=== PATIENT | female | born 1950 | race African-American/Black ===

== ENCOUNTER 2016-09-05 09:42 | Observation (INO) | payer MEDICARE, MEDICAID ==
[~2016-09-05] VITALS: Ht 165.1 cm; Wt 78.7 kg
[2016-09-05] MEDS ORDERED: FUROSEMIDE 40MG/4ML VIAL IV ONE (10:15)
[2016-09-05] MEDS ORDERED: NITROGLYCERIN OINT 1GM/INCH UDPKT TD ONE (10:15)
[2016-09-05] MEDS ORDERED: ASPIRIN 81MG TABLET PO ONE (10:15)
[2016-09-05 10:36] LABS: BASOPHILS % 1.2 % (0.0-2.0); EOSINOPHILS % 0.8 % (0.0-5.0); HEMATOCRIT. 33.1 % (36.0-48.0); HEMOGLOBIN. 10.7 g/dL (12.0-16.0); LYMPHOCYTES % 29.5 % (20.0-50.0); MEAN CORPUSCULAR HEMOGLOBIN 28.2 pg (28.0-32.0); MEAN CORPUSCULAR HGB CONC 32.4 g/dL (31.0-37.0); MEAN CORPUSCULAR VOLUME 87.2 fL (81.0-99.0); MEAN PLATELET VOLUME 7.8 fl (7.4-10.4); MONOCYTES % 4.3 % (2.0-8.0); NEUTROPHILS % 64.2 % (40.0-76.0); PLATELET 207 x1000/uL (130-400); RED BLOOD CELL COUNT 3.79 mill/uL (4.2-5.4); RED CELL DISTRIBUTION WIDTH 18.4 % (11.6-14.6); WHITE BLOOD COUNT 5.6 x1000/uL (4.5-11.0)
[2016-09-05 10:45] LABS: D-DIMER 0.26 mg/L FEU (<0.50); INR 1.3; PROTHROMBIN TIME 13.4 sec
[2016-09-05 10:46] LABS: ALBUMIN 3.3 g/dL (3.4-5.0); ANION GAP 15; CALCIUM 8.5 mg/dL (8.5-10.1); CARBON DIOXIDE 27 mEq/L (21-32); CHLORIDE 108 mEq/L (98-107); INDEX HEMOLYSI 1 (1-3); INDEX ICTERIC 1 (1-4); INDEX LIPEMIC 1 (1-3); LIPASE 136 IU/L (73-393); UREA NITROGEN BLOOD 15 mg/dL (7-21)
[2016-09-05 10:53] LABS: ALANINE AMINOTRANSFERASE 18 IU/L (13-61); NT PRO B-TYPE NATRIURETIC PEP 4877 pg/mL (5-125); TROPONIN I < 0.02 ng/mL (0.00-0.04); eGFR > 60 mL/min (>60)
[2016-09-05 13:28] LABS: CLARITY URINE CLEAR (CLEAR); COLOR URINE YELLOW (YELLOW); GLUCOSE URINE NEGATIVE (NEGATIVE); KETONES URINE NEGATIVE (NEGATIVE); LEUKOCYTE ESTERASE URINE NEGATIVE (NEGATIVE); NITRITE URINE NEGATIVE (NEGATIVE); OCCULT BLOOD URINE NEGATIVE (NEGATIVE); PH URINE 7.5 (4.5-8.0); PROTEIN URINE NEGATIVE (NEGATIVE); SPECIFIC GRAVITY URINE 1.007 (1.005-1.030)
[2016-09-05 13:46] LABS: RBC URINE 0-2 /hpf (0-2); SQUAMOUS EPITHELIAL CELL URINE RARE /lpf (RARE/1+); WBC URINE 0-2 /hpf (0-2)
[2016-09-05 13:47] LABS: BACTERIA URINE TRACE
[2016-09-05] MEDS ORDERED: ONDANSETRON HCL 4MG/2ML VIAL IV PRN (15:15)
[2016-09-05] MEDS ORDERED: ENOXAPARIN 40MG/0.4ML SYR SUBCUT SCH (15:15)
[2016-09-05] MEDS ORDERED: IPRATROPIUM/ALBUTEROL 0.5-3(2.5)MG/3ML NEB INH PRN (15:15)
[2016-09-05] MEDS ORDERED: CLONIDINE 0.1MG TABLET PO PRN (15:15)
[2016-09-05] MEDS ORDERED: ACETAMINOPHEN 325MG TABLET PO PRN (15:15)
[2016-09-05 16:56] LABS: CALCIUM 8.7 mg/dL (8.5-10.1); CHLORIDE 104 mEq/L (98-107); INDEX HEMOLYSI 1 (1-3); INDEX ICTERIC 1 (1-4); INDEX LIPEMIC 1 (1-3)
[2016-09-05 17:00] LABS: ANION GAP 14; CARBON DIOXIDE 30 mEq/L (21-32); UREA NITROGEN BLOOD 15 mg/dL (7-21); eGFR > 60 mL/min (>60)
[2016-09-05] MEDS ORDERED: DILTIAZEM HCL 5MG/ML 5ML VIAL IV PRN (17:15)
[2016-09-05 18:20] VITALS: BP 149/107
[2016-09-05 19:30] VITALS: BP 148/106
[2016-09-05] MEDS ORDERED: ENOXAPARIN 60MG/0.6ML SYR SUBCUT NR (19:30)
[2016-09-05 20:00] VITALS: BP 148/106
[2016-09-05 23:11] LABS: CREATINE KINASE 82 IU/L (26-192); INDEX HEMOLYSI 1 (1-3); TROPONIN I < 0.02 ng/mL (0.00-0.04)
[2016-09-05] MEDS ORDERED: METF500T4 PO (23:47)
[2016-09-06] VITALS: BP 135/97
[2016-09-06] MEDS ORDERED: LISI10TA5 PO (00:06)
[2016-09-06] MEDS ORDERED: ATOR40TA70 PO (00:06)
[2016-09-06] MEDS ORDERED: DIGO125T82 PO (00:06)
[2016-09-06] MEDS ORDERED: FLOV44 INH (00:06)
[2016-09-06] MEDS ORDERED: CARV25TA47 PO (00:06)
[2016-09-06] MEDS ORDERED: FURO40TA5 PO (00:06)
[2016-09-06] MEDS ORDERED: NITR0.4T SL (00:06)
[2016-09-06] MEDS ORDERED: ISOS30TA6 PO (00:06)
[2016-09-06] MEDS ORDERED: WARF7.5T22 PO (00:06)
[2016-09-06] MEDS ORDERED: ASPI-1035 PO (00:06)
[2016-09-06] MEDS ORDERED: PROT40 PO (00:06)
[2016-09-06] MEDS: HYDROCODONE/ACETAMINOPHEN 5/325MG TABLET PO PRN ×2 (00:52→11:26)
[2016-09-06] MEDS: DILTIAZEM HCL 30MG TABLET PO SCH ×5 (02:35→23:48)
[2016-09-06 04:00] VITALS: BP 130/86
[2016-09-06 06:31] LABS: BASOPHILS % 0.9 % (0.0-2.0); EOSINOPHILS % 1.6 % (0.0-5.0); HEMATOCRIT. 32.3 % (36.0-48.0); HEMOGLOBIN. 10.6 g/dL (12.0-16.0); LYMPHOCYTES % 33.2 % (20.0-50.0); MEAN CORPUSCULAR HEMOGLOBIN 28.5 pg (28.0-32.0); MEAN CORPUSCULAR HGB CONC 32.7 g/dL (31.0-37.0); MEAN CORPUSCULAR VOLUME 87.1 fL (81.0-99.0); NEUTROPHILS % 60.3 % (40.0-76.0); PLATELET 209 x1000/uL (130-400); RED BLOOD CELL COUNT 3.71 mill/uL (4.2-5.4); RED CELL DISTRIBUTION WIDTH 18.6 % (11.6-14.6); WHITE BLOOD COUNT 5.5 x1000/uL (4.5-11.0)
[2016-09-06 06:51] LABS: ALANINE AMINOTRANSFERASE 20 IU/L (13-61); ALBUMIN 2.9 g/dL (3.4-5.0); ANION GAP 11; CALCIUM 8.1 mg/dL (8.5-10.1); CARBON DIOXIDE 30 mEq/L (21-32); CHLORIDE 106 mEq/L (98-107); CREATINE KINASE 75 IU/L (26-192); CREATINE KINASE MB FRACTION < 0.5 ng/mL (0.5-3.6); HDL CHOLESTEROL 37 mg/dL (40-59); INDEX HEMOLYSI 1 (1-3); INDEX ICTERIC 1 (1-4); INDEX LIPEMIC 1 (1-3); LDL CHOLESTEROL 33 mg/dL (5-100); MAGNESIUM 1.5 mg/dL (1.8-2.4); NT PRO B-TYPE NATRIURETIC PEP 3902 pg/mL (5-125); T4 FREE 1.64 ng/dL (0.76-1.46); THYROID STIMULATING HORMONE 0.25 uIU/mL (0.36-3.74); TRIGLYCERIDE 64 mg/dL (0-150); TROPONIN I < 0.02 ng/mL (0.00-0.04); UREA NITROGEN BLOOD 15 mg/dL (7-21); eGFR > 60 mL/min (>60)
[2016-09-06] MEDS ORDERED: DEXTROSE 50% WATER 50ML SYRINGE IV PRN (07:45)
[2016-09-06] MEDS: BLOOD SUGAR DIAGNOSTIC STRIP TEST SCH ×4 (07:52→20:35)
[2016-09-06] MEDS: INSULIN LISPRO 100 UNITS/ML SUBCUT SCH ×4 (07:53→20:35)
[2016-09-06 08:00] VITALS: BP_SYST 140; BP_SYST 148; BP_DIAS 95; BP_DIAS 97
[2016-09-06] MEDS ORDERED: POTASSIUM CHLORIDE 20MEQ TABLET SR PO NR (11:00)
[2016-09-06] MEDS: ASPIRIN 81MG EC TABLET PO SCH (11:27)
[2016-09-06] MEDS: FUROSEMIDE 40MG/4ML VIAL IV SCH (11:49)
[2016-09-06 12:00] VITALS: BP 140/95
[2016-09-06] MEDS ORDERED: MAGNESIUM 2 G PREMIX 50 ML IV NR (13:00)
[2016-09-06] MEDS: ENOXAPARIN 80MG/0.8ML SYR SUBCUT SCH (16:39)
[2016-09-06 17:00] VITALS: BP 130/83
[2016-09-06] MEDS ORDERED: WARFARIN SODIUM 7.5MG TABLET PO SCH (18:00)
[2016-09-06] MEDS ORDERED: DIGOXIN 125MCG TABLET PO SCH (18:00)
[2016-09-06 20:00] VITALS: BP 156/119
[2016-09-06] MEDS: CARVEDILOL 25MG TABLET PO SCH (20:24)
[2016-09-07] VITALS: BP 145/108
[2016-09-07 04:00] VITALS: BP 161/105
[2016-09-07] MEDS: DILTIAZEM HCL 30MG TABLET PO SCH ×2 (05:23→12:28)
[2016-09-07] MEDS: ENOXAPARIN 80MG/0.8ML SYR SUBCUT SCH (05:24)
[2016-09-07] MEDS: BLOOD SUGAR DIAGNOSTIC STRIP TEST SCH ×2 (06:14→11:58)
[2016-09-07] MEDS: INSULIN LISPRO 100 UNITS/ML SUBCUT SCH ×2 (06:24→11:59)
[2016-09-07 06:35] LABS: INR 1.4; PROTHROMBIN TIME 14.2 sec
[2016-09-07 07:43] LABS: BASOPHILS % 0.6 % (0.0-2.0); EOSINOPHILS % 1.5 % (0.0-5.0); LYMPHOCYTES % 28.6 % (20.0-50.0); MEAN CORPUSCULAR HEMOGLOBIN 28.5 pg (28.0-32.0); MEAN CORPUSCULAR HGB CONC 32.3 g/dL (31.0-37.0); MEAN CORPUSCULAR VOLUME 88.2 fL (81.0-99.0); MEAN PLATELET VOLUME 7.8 fl (7.4-10.4); MONOCYTES % 5.3 % (2.0-8.0); PLATELET 217 x1000/uL (130-400); RED BLOOD CELL COUNT 3.85 mill/uL (4.2-5.4); RED CELL DISTRIBUTION WIDTH 18.7 % (11.6-14.6); WHITE BLOOD COUNT 5.2 x1000/uL (4.5-11.0)
[2016-09-07 08:00] VITALS: BP 144/116
[2016-09-07 08:16] LABS: ANION GAP 10; CALCIUM 8.4 mg/dL (8.5-10.1); CARBON DIOXIDE 31 mEq/L (21-32); CHLORIDE 106 mEq/L (98-107); INDEX HEMOLYSI 1 (1-3); INDEX ICTERIC 1 (1-4); INDEX LIPEMIC 1 (1-3); MAGNESIUM 1.9 mg/dL (1.8-2.4); UREA NITROGEN BLOOD 14 mg/dL (7-21); eGFR > 60 mL/min (>60)
[2016-09-07] MEDS ORDERED: POTASSIUM CHLORIDE 20MEQ TABLET SR PO SCH (09:00)
[2016-09-07] MEDS: CARVEDILOL 25MG TABLET PO SCH (10:07)
[2016-09-07] MEDS: ASPIRIN 81MG EC TABLET PO SCH (10:07)
[2016-09-07] MEDS: FUROSEMIDE 40MG/4ML VIAL IV SCH (10:08)
[2016-09-07 12:00] VITALS: BP 115/83
[2016-09-07 13:40] VITALS: BP 115/83
[2016-09-07] MEDS ORDERED: WARFARIN SODIUM 10MG TABLET PO NR (18:00)
== END 2016-09-07 14:06 | disposition home or self-care (01) ==
LOC: ER 09:43 → 5WST 12:00 → INTOOBSV 12:00 → 5WST 18:20 → UNDOADMIN 18:20
PROVIDERS: ADMIT Internal Medicine; ATTEND Internal Medicine
DX: R07.2 Precordial pain (principal); I11.0 Hypertensive heart disease with heart failure; I50.9 Heart failure, unspecified; J45.909 Unspecified asthma, uncomplicated; I25.10 Atherosclerotic heart disease of native coronary artery without angina pectoris; M25.472 Effusion, left ankle; I48.2 Chronic atrial fibrillation; E11.9 Type 2 diabetes mellitus without complications; Z79.01 Long term (current) use of anticoagulants; Z95.2 Presence of prosthetic heart valve; Z95.1 Presence of aortocoronary bypass graft; Z99.81 Dependence on supplemental oxygen
CPT/HCPCS: 36415; 70450; 71010; 80048; 80053; 80061; 80162; 81001; 82550; 82553; 82962; 83690; 83735; 83880; 84439; 84443; 84484; 85025; 85379; 85610; 93005; 93306; 93970; 96365; 96366; 96372; 96375; 96376; 99285; G0378; J1650; J1940; J3475; J3490; J7050; 96374

== ENCOUNTER 2017-06-08 10:58 | Observation (INO) | payer MEDICARE, MEDICAID ==
[~2017-06-08] VITALS: Ht 167.6 cm; Wt 96.6 kg
[~2017-06-08 10:58] MED LIST: ASPI-1159 PO; ATOR40TA70 PO; CARV25TA47 PO; DIGO125T82 PO; FLOV44 INH; FURO40TA5 PO; ISOS30TA6 PO; LISI10TA5 PO; METF-414 PO; NITR0.4T SL; PROT40 PO; WARF7.5T22 PO
[2017-06-08 12:23] LABS: BASOPHILS % 0.7 % (0.0-2.0); HEMATOCRIT. 30.5 % (36.0-48.0); HEMOGLOBIN. 9.4 g/dL (12.0-16.0); LYMPHOCYTES % 24.8 % (20.0-50.0); MEAN CORPUSCULAR HEMOGLOBIN 25.6 pg (28.0-32.0); MEAN CORPUSCULAR VOLUME 82.9 fL (81.0-99.0); MEAN PLATELET VOLUME 7.8 fl (7.4-10.4); MONOCYTES % 7.6 % (2.0-8.0); NEUTROPHILS % 66.9 % (40.0-76.0); PLATELET 197 x1000/uL (130-400); RED BLOOD CELL COUNT 3.68 mill/uL (4.2-5.4); RED CELL DISTRIBUTION WIDTH 19.8 % (11.6-14.6)
[2017-06-08 12:29] LABS: INR 1.4; PROTHROMBIN TIME 14.3 sec (9.4-11.6)
[2017-06-08 12:42] LABS: CHLORIDE 109 mEq/L (98-107)
[2017-06-08] MEDS ORDERED: FUROSEMIDE 20MG/2ML VIAL IVP ONE (13:45)
[2017-06-08] MEDS ORDERED: ASPIRIN 81MG TABLET PO ONE (13:45)
[2017-06-08] MEDS ORDERED: NITROGLYCERIN 0.4MG TABLET SL SL PRN (14:45)
[2017-06-08] MEDS ORDERED: LISINOPRIL 10MG TABLET PO SCH (15:30)
[2017-06-08] MEDS ORDERED: DIGOXIN 125MCG TABLET PO SCH (15:30)
[2017-06-08] MEDS ORDERED: FUROSEMIDE 40MG/4ML VIAL IVP SCH (17:00)
[2017-06-08] MEDS ORDERED: CARVEDILOL 25MG TABLET PO SCH (17:00)
[2017-06-08 18:00] VITALS: BP 155/78
[2017-06-08] MEDS ORDERED: METFORMIN HCL 500MG TABLET PO SCH (18:10)
[2017-06-08] MEDS ORDERED: WARFARIN SODIUM 7.5MG TABLET PO NR (18:15)
[2017-06-08] MEDS ORDERED: DEXTROSE 50% WATER 50ML SYRINGE IV PRN (19:30)
[2017-06-08 20:00] VITALS: BP 143/93
[2017-06-08 20:58] VITALS: BP 143/93
[2017-06-08] MEDS ORDERED: ATORVASTATIN CALCIUM 40MG TABLET PO SCH (21:00)
[2017-06-08] MEDS ORDERED: BLOOD SUGAR DIAGNOSTIC STRIP TEST SCH (21:00)
[2017-06-08] MEDS ORDERED: INSULIN LISPRO 100 UNITS/ML SUBCUT SCH (21:00)
[2017-06-09] MEDS ORDERED: PANTOPRAZOLE 40MG DR TABLET PO SCH (07:40)
[2017-06-09] MEDS ORDERED: ISOSORBIDE MONONITRATE 30MG TABLET SR 24HR PO SCH (09:00)
[2017-06-09] MEDS ORDERED: ASPIRIN 81MG EC TABLET PO SCH (09:00)
[2018-03-08] MEDS ORDERED: GLIP5TAB12 MT (00:21)
[2018-03-08] MEDS ORDERED: MONT10TA24 MT (00:21)
[2018-03-08] MEDS ORDERED: OLME20TA22 PO (00:21)
[2018-03-08] MEDS ORDERED: AMIO100T4 PO (00:21)
[2018-03-08] MEDS ORDERED: DILT60TA35 PO (00:21)
[2018-03-08] MEDS ORDERED: POTA25TA8 PO (00:21)
[2018-03-08] MEDS ORDERED: METF-815 MT (00:21)
[2018-03-08] MEDS ORDERED: FURO40TA5 MT (00:21)
== END 2017-06-08 21:30 ==
LOC: ER 11:39 → 7WST 14:31 → INTOOBSV 14:31 → ENRESERV 16:00 → 7WST 18:06
PROVIDERS: ADMIT Internal Medicine; ATTEND Internal Medicine
DX: I11.0 Hypertensive heart disease with heart failure (principal); I50.9 Heart failure, unspecified; I27.20 Pulmonary hypertension, unspecified; I48.1 Persistent atrial fibrillation; I42.9 Cardiomyopathy, unspecified; D50.9 Iron deficiency anemia, unspecified; E11.9 Type 2 diabetes mellitus without complications; J44.9 Chronic obstructive pulmonary disease, unspecified; I25.10 Atherosclerotic heart disease of native coronary artery without angina pectoris; K21.9 Gastro-esophageal reflux disease without esophagitis; I16.0 Hypertensive urgency; I34.8 Other nonrheumatic mitral valve disorders; Z79.01 Long term (current) use of anticoagulants; Z82.49 Family history of ischemic heart disease and other diseases of the circulatory system; Z83.3 Family history of diabetes mellitus; Z79.899 Other long term (current) drug therapy; Z90.49 Acquired absence of other specified parts of digestive tract
CPT/HCPCS: 36415; 71045; 80053; 80162; 82962; 83880; 84484; 85025; 85610; 87804; 93005; 96374; 99285; G0378; J1940

== ENCOUNTER 2018-02-08 22:45 | Inpatient (IN) | payer OTHER, MEDICAID ==
[~2018-02-08] VITALS: Ht 167.6 cm; Wt 95.9 kg
[~2018-02-08 22:45] MED LIST changes: -METF-414 PO
[2018-02-08] MEDS ORDERED: FUROSEMIDE 40MG/4ML VIAL IV ONE (23:30)
[2018-02-08 23:59] LABS: BASOPHILS % 0.9 % (0.0-2.0); HEMATOCRIT. 30.8 % (36.0-48.0); HEMOGLOBIN. 9.5 g/dL (12.0-16.0); LYMPHOCYTES % 27.6 % (20.0-50.0); MEAN CORPUSCULAR HEMOGLOBIN 23.8 pg (28.0-32.0); MEAN CORPUSCULAR VOLUME 77.3 fL (81.0-99.0); MEAN PLATELET VOLUME 7.1 fl (7.4-10.4); MONOCYTES % 9.7 % (2.0-8.0); NEUTROPHILS % 61.8 % (40.0-76.0); PLATELET 184 x1000/uL (130-400); RED BLOOD CELL COUNT 3.98 mill/uL (4.2-5.4); RED CELL DISTRIBUTION WIDTH 20.6 % (11.6-14.6)
[2018-02-09 00:16] LABS: CHLORIDE 109 mEq/L (98-107)
[2018-02-09 05:42] VITALS: BP 135/97
[2018-02-09 05:45] VITALS: BP 135/97
[2018-02-09 08:00] VITALS: BP 126/101
[2018-02-09] MEDS ORDERED: IPRATROPIUM/ALBUTEROL 0.5-3(2.5)MG/3ML NEB INH PRN (10:15)
[2018-02-09] MEDS ORDERED: DEXTROSE 50% WATER 50ML SYRINGE IV PRN (10:15)
[2018-02-09] MEDS ORDERED: MEDICATION NOT ON FORMULARY EA (Lisinopril 1 TAB) PO SCH (10:15)
[2018-02-09] MEDS ORDERED: MAGNESIUM/ALUMINUM HYDROXIDE/SIMETHICONE 30ML UDC PO PRN (10:15)
[2018-02-09] MEDS ORDERED: HYDROCODONE/ACETAMINOPHEN 5/325MG TABLET PO PRN (10:15)
[2018-02-09] MEDS ORDERED: ONDANSETRON HCL 4MG/2ML INJ IV PRN (10:15)
[2018-02-09] MEDS ORDERED: ACETAMINOPHEN 325MG TABLET PO PRN (10:15)
[2018-02-09] MEDS ORDERED: CLONIDINE 0.1MG TABLET PO PRN (10:15)
[2018-02-09] MEDS ORDERED: NA PHOS,M-B/NA PHOS,DI-BA ENEMA 118ML PR PRN (10:15)
[2018-02-09] MEDS ORDERED: DIPHENHYDRAMINE 50MG/ML VIAL IV PRN (10:15)
[2018-02-09] MEDS ORDERED: ACETAMINOPHEN 650MG SUPP PR PRN (10:15)
[2018-02-09] MEDS ORDERED: MEDICATION NOT ON FORMULARY EA (Isosorbide Mononitrate (Isosorbide Mononitrate Er) 1 TAB PO SCH (10:15)
[2018-02-09] MEDS ORDERED: ENOXAPARIN 40MG/0.4ML SYR SUBCUT SCH (11:00)
[2018-02-09 11:04] LABS: BG BASE EXCESS 0.9 mmol/L (-2.0-2.0); BG CARBOXYHEMOGLOBIN 0.5 % (0.5-1.5); BG DEOXYHEMOGLOBIN 6.8 % (0.0-5.0); BG METHEMOGLOBIN 0.2 % (0.0-1.5); BG OXYGEN SATURATION 93.2 % (92.0-98.5); BG OXYHEMOGLOBIN 92.5 % (94.0-97.0); BG PCO2 43.5 mmHg (35.0-45.0); BG PH 7.394 (7.350-7.450); BG PO2 74.5 mmHg (75.0-100.0); BG SAMPLE SITE RIGHT BRACHIAL; BG TOTAL HEMOGLOBIN 10.4 g/dL (12.0-18.0); BG VENT MODE NASAL CANNULA
[2018-02-09] MEDS: ASPIRIN 81MG TABLET PO SCH (11:17)
[2018-02-09] MEDS: LISINOPRIL 10MG TABLET PO SCH (11:18)
[2018-02-09] MEDS: CARVEDILOL 25MG TABLET PO SCH ×2 (11:18→20:42)
[2018-02-09] MEDS: ISOSORBIDE MONONITRATE 30MG TABLET SR 24HR PO SCH (11:18)
[2018-02-09] MEDS: FUROSEMIDE 40MG/4ML VIAL IVP SCH ×2 (11:24→17:31)
[2018-02-09] MEDS: BLOOD SUGAR DIAGNOSTIC STRIP TEST SCH ×3 (11:58→20:42)
[2018-02-09] MEDS ORDERED: VERAPAMIL HCL 2.5 MG/1 ML 2ML VIAL IV PRN (12:45)
[2018-02-09] MEDS: INSULIN LISPRO 100 UNITS/ML SUBCUT SCH ×3 (13:09→20:45)
[2018-02-09 13:27] LABS: INR 2.1; PROTHROMBIN TIME 21.1 sec (9.1-11.1)
[2018-02-09 16:00] VITALS: BP 116/84
[2018-02-09] MEDS: ATORVASTATIN CALCIUM 40MG TABLET PO SCH (17:32)
[2018-02-09] MEDS ORDERED: WARFARIN SODIUM 7.5MG TABLET PO NR (18:00)
[2018-02-09] MEDS ORDERED: BUDESONIDE 0.5MG/2ML NEB HHN SCH (19:30)
[2018-02-09 20:00] VITALS: BP 139/78
[2018-02-09] MEDS: DIGOXIN 125MCG TABLET PO SCH (20:52)
[2018-02-10] VITALS: BP 117/72
[2018-02-10 04:00] VITALS: BP 133/84
[2018-02-10] MEDS: PANTOPRAZOLE 40MG DR TABLET PO SCH (05:55)
[2018-02-10] MEDS: BLOOD SUGAR DIAGNOSTIC STRIP TEST SCH ×4 (05:55→20:23)
[2018-02-10] MEDS: INSULIN LISPRO 100 UNITS/ML SUBCUT SCH ×4 (06:20→20:33)
[2018-02-10 07:39] LABS: HEMATOCRIT. 29.8 % (36.0-48.0); HEMOGLOBIN. 9.5 g/dL (12.0-16.0); LYMPHOCYTES % 26.7 % (20.0-50.0); MEAN CORPUSCULAR HEMOGLOBIN 24.4 pg (28.0-32.0); MEAN CORPUSCULAR VOLUME 76.7 fL (81.0-99.0); MEAN PLATELET VOLUME 7.6 fl (7.4-10.4); MONOCYTES % 9.5 % (2.0-8.0); NEUTROPHILS % 62.8 % (40.0-76.0); PLATELET 190 x1000/uL (130-400); RED BLOOD CELL COUNT 3.89 mill/uL (4.2-5.4); RED CELL DISTRIBUTION WIDTH 20.4 % (11.6-14.6)
[2018-02-10 07:46] LABS: CHLORIDE 107 mEq/L (98-107)
[2018-02-10 08:00] VITALS: BP 140/95
[2018-02-10 08:05] LABS: INR 2.1; PROTHROMBIN TIME 20.6 sec (9.1-11.1)
[2018-02-10] MEDS ORDERED: MEDICATION NOT ON FORMULARY EA (Pantoprazole Sodium (Protonix) 1 TAB) PO SCH (09:00)
[2018-02-10] MEDS ORDERED: FUROSEMIDE 40MG/4ML VIAL IV SCH (09:00)
[2018-02-10] MEDS: ISOSORBIDE MONONITRATE 30MG TABLET SR 24HR PO SCH (09:48)
[2018-02-10] MEDS: FUROSEMIDE 40MG/4ML VIAL IVP SCH ×2 (09:48→20:22)
[2018-02-10] MEDS: CARVEDILOL 25MG TABLET PO SCH ×2 (09:49→20:23)
[2018-02-10] MEDS: DIGOXIN 125MCG TABLET PO SCH (09:49)
[2018-02-10] MEDS: ASPIRIN 81MG TABLET PO SCH (09:49)
[2018-02-10] MEDS: LISINOPRIL 10MG TABLET PO SCH (09:53)
[2018-02-10 10:57] LABS: BG BASE EXCESS 5.4 mmol/L (-2.0-2.0); BG CARBOXYHEMOGLOBIN 0.7 % (0.5-1.5); BG DEOXYHEMOGLOBIN 23.2 % (0.0-5.0); BG FRACTION INSPIRED OXYGEN 21; BG METHEMOGLOBIN 0.3 % (0.0-1.5); BG OXYGEN SATURATION 76.6 % (92.0-98.5); BG OXYHEMOGLOBIN 75.8 % (94.0-97.0); BG PCO2 50.7 mmHg (35.0-45.0); BG PH 7.404 (7.350-7.450); BG PO2 46.7 mmHg (75.0-100.0); BG SAMPLE SITE RIGHT BRACHIAL; BG TOTAL HEMOGLOBIN 10.5 g/dL (12.0-18.0); BG VENT MODE ROOM AIR
[2018-02-10 12:00] VITALS: BP 136/85
[2018-02-10] MEDS ORDERED: GUAIFENESIN/CODEINE 200-20MG/10ML UDC PO PRN (12:00)
[2018-02-10] MEDS ORDERED: GUAIFENESIN/CODEINE 200-20MG/10ML UDC PO ONE (12:00)
[2018-02-10] MEDS ORDERED: GUAIFENESIN 200MG/10ML SUGAR FREE UDC PO NR (12:15)
[2018-02-10] MEDS ORDERED: GUAIFENESIN 200MG/10ML SUGAR FREE UDC PO PRN (12:15)
[2018-02-10 17:00] VITALS: BP 121/70
[2018-02-10] MEDS: ATORVASTATIN CALCIUM 40MG TABLET PO SCH (17:44)
[2018-02-10] MEDS ORDERED: WARFARIN SODIUM 7.5MG TABLET PO SCH (18:00)
[2018-02-10 20:00] VITALS: BP 134/80
[2018-02-11] VITALS: BP 110/58
[2018-02-11] MEDS: FUROSEMIDE 40MG/4ML VIAL IVP SCH ×2 (02:58→11:14)
[2018-02-11 04:00] VITALS: BP 107/71
[2018-02-11] MEDS: BLOOD SUGAR DIAGNOSTIC STRIP TEST SCH ×3 (06:01→16:45)
[2018-02-11] MEDS: PANTOPRAZOLE 40MG DR TABLET PO SCH (06:01)
[2018-02-11] MEDS: INSULIN LISPRO 100 UNITS/ML SUBCUT SCH ×3 (07:15→17:15)
[2018-02-11 07:40] LABS: INR 2.3; PROTHROMBIN TIME 22.5 sec (9.1-11.1)
[2018-02-11 07:46] LABS: CHLORIDE 106 mEq/L (98-107)
[2018-02-11 07:49] LABS: HEMOGLOBIN 9.9 g/dL (12.0-16.0); MEAN CORPUSCULAR HEMOGLOBIN 24.8 pg (28.0-32.0); MEAN CORPUSCULAR VOLUME 77.8 fL (81.0-99.0); PLATELET 215 x1000/uL (130-400); RED BLOOD CELL COUNT 3.99 mill/uL (4.2-5.4); RED CELL DISTRIBUTION WIDTH 20.5 % (11.6-14.6)
[2018-02-11 08:00] VITALS: BP 137/91
[2018-02-11] MEDS: ASPIRIN 81MG TABLET PO SCH (09:27)
[2018-02-11] MEDS: ISOSORBIDE MONONITRATE 30MG TABLET SR 24HR PO SCH (09:27)
[2018-02-11] MEDS: LISINOPRIL 10MG TABLET PO SCH (09:28)
[2018-02-11] MEDS: DIGOXIN 125MCG TABLET PO SCH (09:28)
[2018-02-11] MEDS: CARVEDILOL 25MG TABLET PO SCH (09:29)
[2018-02-11 12:00] VITALS: BP 122/79
[2018-02-11 16:00] VITALS: BP 134/85
[2018-02-11] MEDS ORDERED: WARFARIN SODIUM 7.5MG TABLET PO SCH (18:00)
[2018-02-11 18:08] VITALS: BP 134/85
[2018-02-11] MEDS: ATORVASTATIN CALCIUM 40MG TABLET PO SCH (18:18)
== END 2018-02-11 19:01 | disposition home or self-care (01) | DRG 291 ==
LOC: ER 23:10 → EDBEDREQTM 02-09 01:07 → EDBEDREQ 02-09 01:07 → ENRESERV 02-09 04:23 → 5WST 02-09 04:23
PROVIDERS: ADMIT Internal Medicine; ATTEND Internal Medicine
DX: I13.0 Hypertensive heart and chronic kidney disease with heart failure and stage 1 through stage 4 chronic kidney disease, or unspecified chronic kidney disease (principal); I50.23 Acute on chronic systolic (congestive) heart failure; D68.9 Coagulation defect, unspecified; J44.1 Chronic obstructive pulmonary disease with (acute) exacerbation; D64.9 Anemia, unspecified; I42.9 Cardiomyopathy, unspecified; I48.2 Chronic atrial fibrillation; I36.1 Nonrheumatic tricuspid (valve) insufficiency; I25.10 Atherosclerotic heart disease of native coronary artery without angina pectoris; D72.819 Decreased white blood cell count, unspecified; E66.9 Obesity, unspecified; I27.20 Pulmonary hypertension, unspecified; N18.9 Chronic kidney disease, unspecified; R09.02 Hypoxemia; E11.22 Type 2 diabetes mellitus with diabetic chronic kidney disease; Z79.4 Long term (current) use of insulin; Z79.01 Long term (current) use of anticoagulants; Z82.49 Family history of ischemic heart disease and other diseases of the circulatory system; Z83.3 Family history of diabetes mellitus; Z95.1 Presence of aortocoronary bypass graft; Z95.2 Presence of prosthetic heart valve; Z88.6 Allergy status to analgesic agent; Z79.899 Other long term (current) drug therapy; Z79.82 Long term (current) use of aspirin; Z90.49 Acquired absence of other specified parts of digestive tract; Z68.34 Body mass index [BMI] 34.0-34.9, adult; R06.03 Acute respiratory distress
CPT/HCPCS: 36415; 36600; 71045; 80048; 80053; 80162; 82375; 82805; 82962; 83735; 83880; 84443; 84484; 85025; 85027; 85379; 85610; 93005; 96374; 99285; J1650; J1815; J1940

== ENCOUNTER 2018-03-20 13:56 | Inpatient (IN) | payer OTHER, MEDICAID ==
[~2018-03-20] VITALS: Ht 167.6 cm; Wt 105.2 kg
[~2018-03-20 13:56] MED LIST changes: +AMIO100T4 PO; -DIGO125T82 PO; +DILT60TA35 PO; -FLOV44 INH; +FURO40TA5 MT; -FURO40TA5 PO; +GLIP5TAB12 MT; +METF-815 MT; +MONT10TA24 MT; -NITR0.4T SL; +OLME20TA22 PO; +POTA25TA8 PO
[2018-03-20] MEDS ORDERED: FUROSEMIDE 100MG/10ML VIAL IVP ONE (15:00)
[2018-03-20 15:02] LABS: BASOPHILS % 1.1 % (0.0-2.0); HEMATOCRIT. 29.9 % (36.0-48.0); HEMOGLOBIN. 9.3 g/dL (12.0-16.0); LYMPHOCYTES % 33.3 % (20.0-50.0); MEAN CORPUSCULAR HEMOGLOBIN 22.7 pg (28.0-32.0); MEAN PLATELET VOLUME 7.6 fl (7.4-10.4); MONOCYTES % 10.6 % (2.0-8.0); PLATELET 244 x1000/uL (130-400); RED BLOOD CELL COUNT 4.09 mill/uL (4.2-5.4); RED CELL DISTRIBUTION WIDTH 20.3 % (11.6-14.6)
[2018-03-20 15:12] LABS: CHLORIDE 107 mEq/L (98-107)
[2018-03-20] MEDS ORDERED: ACETAMINOPHEN 650MG SUPP PR PRN (15:30)
[2018-03-20] MEDS ORDERED: MAGNESIUM/ALUMINUM HYDROXIDE/SIMETHICONE 30ML UDC PO PRN (15:30)
[2018-03-20] MEDS ORDERED: ONDANSETRON HCL 4MG/2ML INJ IV PRN (15:30)
[2018-03-20] MEDS ORDERED: CLONIDINE 0.1MG TABLET PO PRN (15:30)
[2018-03-20] MEDS ORDERED: ACETAMINOPHEN 325MG TABLET PO PRN (15:30)
[2018-03-20] MEDS ORDERED: IPRATROPIUM/ALBUTEROL 0.5-3(2.5)MG/3ML NEB INH PRN (15:30)
[2018-03-20] MEDS ORDERED: DIPHENHYDRAMINE 50MG/ML VIAL IV PRN (15:30)
[2018-03-20] MEDS ORDERED: NA PHOS,M-B/NA PHOS,DI-BA ENEMA 118ML PR PRN (15:30)
[2018-03-20] MEDS ORDERED: HYDROCODONE/ACETAMINOPHEN 5/325MG TABLET PO PRN ×2 (15:30→17:30)
[2018-03-20] MEDS ORDERED: DOCUSATE SODIUM 100MG CAPSULE PO PRN (15:30)
[2018-03-20] MEDS ORDERED: LORAZEPAM 0.5MG TABLET PO PRN (15:30)
[2018-03-20 16:46] LABS: BG BASE EXCESS 3.6 mmol/L (-2.0-2.0); BG CARBOXYHEMOGLOBIN 0.8 % (0.5-1.5); BG DEOXYHEMOGLOBIN 10.4 % (0.0-5.0); BG HCO3 ACT 28.7 mmol/L (22.0-26.0); BG METHEMOGLOBIN 0.4 % (0.0-1.5); BG OXYGEN SATURATION 89.5 % (92.0-98.5); BG OXYHEMOGLOBIN 88.4 % (94.0-97.0); BG PH 7.413 (7.350-7.450); BG PO2 60.8 mmHg (75.0-100.0); BG SAMPLE SITE RIGHT RADIAL; BG TOTAL HEMOGLOBIN 10.1 g/dL (12.0-18.0); BG VENT MODE NASAL CANNULA
[2018-03-20 16:52] LABS: INR 3.3; PROTHROMBIN TIME 32.6 sec (9.1-11.1)
[2018-03-20] MEDS ORDERED: DEXTROSE 50% WATER 50ML SYRINGE IV PRN (17:00)
[2018-03-20 20:30] VITALS: BP 112/85
[2018-03-20 22:00] VITALS: BP 112/85
[2018-03-20] MEDS ORDERED: VERAPAMIL HCL 2.5 MG/1 ML 2ML VIAL IV PRN (22:30)
[2018-03-20] MEDS ORDERED: DIGO125T82 PO (23:00)
[2018-03-20] MEDS ORDERED: NITR0.4T49 SL (23:00)
[2018-03-20] MEDS ORDERED: FLUT30CR12 TP (23:00)
[2018-03-20] MEDS ORDERED: LOSA50TA20 PO (23:00)
[2018-03-20] MEDS: DILTIAZEM HCL 30MG TABLET PO SCH (23:10)
[2018-03-20] MEDS: CARVEDILOL 25MG TABLET PO SCH (23:10)
[2018-03-20] MEDS: METHYLPREDNISOLONE SOD SUCC 40 MG/ML VIAL IV SCH (23:11)
[2018-03-20] MEDS: FUROSEMIDE 40MG/4ML VIAL IV SCH (23:11)
[2018-03-21] VITALS: BP 112/71
[2018-03-21] MEDS: GUAIFENESIN 200MG/10ML SUGAR FREE UDC PO PRN (02:52)
[2018-03-21 03:55] VITALS: BP 101/62
[2018-03-21] MEDS: FUROSEMIDE 40MG/4ML VIAL IV SCH ×2 (06:01→18:44)
[2018-03-21] MEDS: DILTIAZEM HCL 30MG TABLET PO SCH (06:01)
[2018-03-21] MEDS: METHYLPREDNISOLONE SOD SUCC 40 MG/ML VIAL IV SCH ×3 (06:01→21:25)
[2018-03-21] MEDS: BLOOD SUGAR DIAGNOSTIC STRIP TEST SCH ×4 (06:19→21:26)
[2018-03-21 08:00] VITALS: BP 130/76
[2018-03-21] MEDS: ASPIRIN 81MG EC TABLET PO SCH (08:29)
[2018-03-21] MEDS: CARVEDILOL 25MG TABLET PO SCH ×2 (08:29→21:26)
[2018-03-21] MEDS: INSULIN LISPRO 100 UNITS/ML SUBCUT SCH ×4 (08:30→21:28)
[2018-03-21] MEDS ORDERED: ASPIRIN 81MG EC TABLET PO SCH (09:00)
[2018-03-21 09:13] LABS: BG BASE EXCESS 3.4 mmol/L (-2.0-2.0); BG CARBOXYHEMOGLOBIN 1.2 % (0.5-1.5); BG FRACTION INSPIRED OXYGEN 28; BG OXYGEN SATURATION 86.8 % (92.0-98.5); BG OXYHEMOGLOBIN 85.8 % (94.0-97.0); BG PCO2 42.8 mmHg (35.0-45.0); BG PH 7.434 (7.350-7.450); BG PO2 54.2 mmHg (75.0-100.0); BG SAMPLE SITE RIGHT RADIAL; BG TOTAL HEMOGLOBIN 10.7 g/dL (12.0-18.0); BG VENT MODE NASAL CANNULA
[2018-03-21 10:18] LABS: BASOPHILS % 0.6 % (0.0-2.0); HEMATOCRIT. 30.7 % (36.0-48.0); HEMOGLOBIN. 9.4 g/dL (12.0-16.0); LYMPHOCYTES % 25.5 % (20.0-50.0); MEAN CORPUSCULAR VOLUME 72.1 fL (81.0-99.0); MEAN PLATELET VOLUME 7.9 fl (7.4-10.4); MONOCYTES % 1.1 % (2.0-8.0); NEUTROPHILS % 72.8 % (40.0-76.0); PLATELET 228 x1000/uL (130-400); RED BLOOD CELL COUNT 4.26 mill/uL (4.2-5.4); RED CELL DISTRIBUTION WIDTH 20.3 % (11.6-14.6)
[2018-03-21 10:22] LABS: INR 2.9; PROTHROMBIN TIME 28.2 sec (9.1-11.1)
[2018-03-21 10:55] LABS: CHLORIDE 106 mEq/L (98-107)
[2018-03-21 11:17] LABS: TOTAL IRON BINDING CAPACITY 374 ug/dL (250-450)
[2018-03-21 11:23] LABS: D-DIMER 0.59 mg/L FEU (<0.50)
[2018-03-21 12:00] VITALS: BP 92/64
[2018-03-21] MEDS: DILTIAZEM HCL 60MG TABLET PO SCH ×2 (14:00→21:26)
[2018-03-21] MEDS: POTASSIUM CHLORIDE 20MEQ TABLET SR PO SCH (14:15)
[2018-03-21 15:32] LABS: CLARITY URINE CLEAR (CLEAR); COLOR URINE YELLOW (YELLOW); KETONES URINE NEGATIVE (NEGATIVE); LEUKOCYTE ESTERASE URINE NEGATIVE (NEGATIVE); NITRITE URINE NEGATIVE (NEGATIVE); OCCULT BLOOD URINE NEGATIVE (NEGATIVE); PH URINE 5.5 (4.5-8.0); PROTEIN URINE NEGATIVE (NEGATIVE); SPECIFIC GRAVITY URINE 1.012 (1.005-1.030)
[2018-03-21 16:00] VITALS: BP 100/64
[2018-03-21] MEDS ORDERED: WARFARIN SODIUM 7.5MG TABLET PO SCH (18:00)
[2018-03-21] MEDS: IPRATROPIUM/ALBUTEROL 0.5-3(2.5)MG/3ML NEB HHN SCH (19:50)
[2018-03-21 20:00] VITALS: BP 119/75
[2018-03-22] VITALS: BP 113/74
[2018-03-22 04:00] VITALS: BP 101/80
[2018-03-22] MEDS: DILTIAZEM HCL 60MG TABLET PO SCH ×3 (06:00→21:34)
[2018-03-22] MEDS: BLOOD SUGAR DIAGNOSTIC STRIP TEST SCH ×4 (07:00→21:34)
[2018-03-22] MEDS: FUROSEMIDE 40MG/4ML VIAL IV SCH ×2 (07:00→17:41)
[2018-03-22] MEDS: METHYLPREDNISOLONE SOD SUCC 40 MG/ML VIAL IV SCH ×2 (07:00→14:29)
[2018-03-22 07:45] VITALS: BP 123/64
[2018-03-22] MEDS: ASPIRIN 81MG EC TABLET PO SCH (07:56)
[2018-03-22] MEDS: CARVEDILOL 25MG TABLET PO SCH ×2 (07:56→21:34)
[2018-03-22] MEDS: POTASSIUM CHLORIDE 20MEQ TABLET SR PO SCH (07:56)
[2018-03-22] MEDS: INSULIN LISPRO 100 UNITS/ML SUBCUT SCH ×4 (08:11→21:35)
[2018-03-22 08:30] LABS: HEMATOCRIT. 31.4 % (36.0-48.0); HEMOGLOBIN. 9.4 g/dL (12.0-16.0); LYMPHOCYTES % 11.9 % (20.0-50.0); MEAN CORPUSCULAR HEMOGLOBIN 22.2 pg (28.0-32.0); MEAN CORPUSCULAR VOLUME 74.3 fL (81.0-99.0); MEAN PLATELET VOLUME 7.7 fl (7.4-10.4); MONOCYTES % 1.9 % (2.0-8.0); NEUTROPHILS % 86.2 % (40.0-76.0); PLATELET 218 x1000/uL (130-400); RED BLOOD CELL COUNT 4.23 mill/uL (4.2-5.4); RED CELL DISTRIBUTION WIDTH 20.6 % (11.6-14.6)
[2018-03-22 08:43] LABS: INR 2.8; PROTHROMBIN TIME 27.5 sec (9.1-11.1)
[2018-03-22 11:54] VITALS: BP 108/69
[2018-03-22 15:47] VITALS: BP 90/62
[2018-03-22] MEDS ORDERED: WARFARIN SODIUM 7.5MG TABLET PO SCH (18:00)
[2018-03-22] MEDS: BUDESONIDE 0.5MG/2ML NEB HHN SCH (19:50)
[2018-03-22 20:00] VITALS: BP 116/79
[2018-03-23] VITALS: BP 107/77
[2018-03-23] MEDS: IPRATROPIUM/ALBUTEROL 0.5-3(2.5)MG/3ML NEB HHN SCH ×3 (01:00→19:50)
[2018-03-23] MEDS: BUDESONIDE 0.5MG/2ML NEB HHN SCH ×3 (01:00→19:50)
[2018-03-23 04:00] VITALS: BP 106/60
[2018-03-23] MEDS: DILTIAZEM HCL 60MG TABLET PO SCH ×3 (06:00→21:18)
[2018-03-23] MEDS: BLOOD SUGAR DIAGNOSTIC STRIP TEST SCH ×4 (06:54→21:11)
[2018-03-23] MEDS: FUROSEMIDE 40MG/4ML VIAL IV SCH ×2 (06:55→16:57)
[2018-03-23 07:24] LABS: HEMATOCRIT. 30.1 % (36.0-48.0); HEMOGLOBIN. 9.1 g/dL (12.0-16.0); MEAN CORPUSCULAR VOLUME 72.7 fL (81.0-99.0); MEAN PLATELET VOLUME 8.1 fl (7.4-10.4); PLATELET 214 x1000/uL (130-400); RED BLOOD CELL COUNT 4.15 mill/uL (4.2-5.4); RED CELL DISTRIBUTION WIDTH 20.1 % (11.6-14.6)
[2018-03-23 07:32] LABS: INR 3.6; PROTHROMBIN TIME 35.6 sec (9.1-11.1)
[2018-03-23 08:00] VITALS: BP 116/71
[2018-03-23] MEDS: POTASSIUM CHLORIDE 20MEQ TABLET SR PO SCH (08:54)
[2018-03-23] MEDS: ASPIRIN 81MG EC TABLET PO SCH (08:54)
[2018-03-23] MEDS: PREDNISONE 20MG TABLET PO SCH (08:55)
[2018-03-23] MEDS: CARVEDILOL 25MG TABLET PO SCH ×2 (08:55→21:00)
[2018-03-23] MEDS: INSULIN LISPRO 100 UNITS/ML SUBCUT SCH ×4 (08:58→21:16)
[2018-03-23 10:17] LABS: PLATELET ESTIMATE NORMAL
[2018-03-23 12:00] VITALS: BP 107/63
[2018-03-23] MEDS: LOSARTAN POTASSIUM 25 MG TABLET PO SCH (13:28)
[2018-03-23 16:00] VITALS: BP 108/72
[2018-03-23] MEDS: DIGOXIN 125MCG TABLET PO SCH (18:45)
[2018-03-23] MEDS: GUAIFENESIN 200MG/10ML SUGAR FREE UDC PO PRN (18:45)
[2018-03-23 20:00] VITALS: BP 109/70
[2018-03-24] VITALS (7 sets, daily range): BP systolic 92–130; BP diastolic 45–90
[2018-03-24] MEDS: IPRATROPIUM/ALBUTEROL 0.5-3(2.5)MG/3ML NEB HHN SCH ×3 (00:54→13:46)
[2018-03-24] MEDS: DILTIAZEM HCL 60MG TABLET PO SCH ×2 (06:37→14:00)
[2018-03-24] MEDS: FUROSEMIDE 40MG/4ML VIAL IV SCH ×2 (06:38→17:50)
[2018-03-24 07:18] LABS: HEMATOCRIT. 31.8 % (36.0-48.0); HEMOGLOBIN. 9.7 g/dL (12.0-16.0); LYMPHOCYTES % 15.1 % (20.0-50.0); MEAN CORPUSCULAR HEMOGLOBIN 22.1 pg (28.0-32.0); MEAN CORPUSCULAR VOLUME 72.5 fL (81.0-99.0); MEAN PLATELET VOLUME 7.6 fl (7.4-10.4); MONOCYTES % 5.6 % (2.0-8.0); NEUTROPHILS % 79.3 % (40.0-76.0); PLATELET 226 x1000/uL (130-400); RED BLOOD CELL COUNT 4.39 mill/uL (4.2-5.4); RED CELL DISTRIBUTION WIDTH 20.5 % (11.6-14.6)
[2018-03-24] MEDS: BLOOD SUGAR DIAGNOSTIC STRIP TEST SCH ×3 (07:29→17:37)
[2018-03-24] MEDS: INSULIN LISPRO 100 UNITS/ML SUBCUT SCH ×3 (07:29→17:50)
[2018-03-24 07:34] LABS: DIGOXIN 0.3 ng/mL (0.9-2.0)
[2018-03-24] MEDS: ASPIRIN 81MG EC TABLET PO SCH (08:36)
[2018-03-24] MEDS: LOSARTAN POTASSIUM 25 MG TABLET PO SCH (08:36)
[2018-03-24] MEDS: CARVEDILOL 25MG TABLET PO SCH (08:36)
[2018-03-24] MEDS: POTASSIUM CHLORIDE 20MEQ TABLET SR PO SCH (08:36)
[2018-03-24] MEDS: PREDNISONE 20MG TABLET PO SCH (08:37)
[2018-03-24] MEDS: BUDESONIDE 0.5MG/2ML NEB HHN SCH (08:49)
[2018-03-24 09:45] LABS: INR 3.3; PROTHROMBIN TIME 32.5 sec (9.1-11.1)
[2018-03-24] MEDS: DIGOXIN 125MCG TABLET PO SCH (17:50)
[2018-03-27] MEDS ORDERED: PREDNISONE 20MG TABLET PO SCH (09:00)
[2018-03-31] MEDS ORDERED: PREDNISONE 10MG TABLET PO SCH (09:00)
== END 2018-03-24 21:00 | disposition home or self-care (01) | DRG 291 ==
LOC: ER 13:56 → 6WST 15:02 → EDBEDREQ 15:09 → EDBEDREQTM 15:09 → ENRESERV 19:26
PROVIDERS: ADMIT Internal Medicine; ATTEND Internal Medicine
DX: I13.0 Hypertensive heart and chronic kidney disease with heart failure and stage 1 through stage 4 chronic kidney disease, or unspecified chronic kidney disease (principal); I50.43 Acute on chronic combined systolic (congestive) and diastolic (congestive) heart failure; J44.1 Chronic obstructive pulmonary disease with (acute) exacerbation; I48.92 Unspecified atrial flutter; D68.9 Coagulation defect, unspecified; I42.9 Cardiomyopathy, unspecified; I27.20 Pulmonary hypertension, unspecified; I07.1 Rheumatic tricuspid insufficiency; E11.22 Type 2 diabetes mellitus with diabetic chronic kidney disease; N18.9 Chronic kidney disease, unspecified; E66.9 Obesity, unspecified; E78.5 Hyperlipidemia, unspecified; I25.10 Atherosclerotic heart disease of native coronary artery without angina pectoris; I42.0 Dilated cardiomyopathy; D64.9 Anemia, unspecified; I48.2 Chronic atrial fibrillation; Z79.01 Long term (current) use of anticoagulants; Z82.49 Family history of ischemic heart disease and other diseases of the circulatory system; Z68.37 Body mass index [BMI] 37.0-37.9, adult; Z83.3 Family history of diabetes mellitus; Z95.1 Presence of aortocoronary bypass graft; Z95.3 Presence of xenogenic heart valve; Z99.81 Dependence on supplemental oxygen; Z88.5 Allergy status to narcotic agent; Z79.899 Other long term (current) drug therapy; Z79.82 Long term (current) use of aspirin; Z79.4 Long term (current) use of insulin
CPT/HCPCS: 36415; 36600; 71045; 78582; 80048; 80162; 82375; 82805; 82962; 83540; 83550; 83735; 83880; 84484; 85379; 93005; 93970; 99291; A9558; J1815; J1940; J2920; J7512; J7620; J7626

== ENCOUNTER 2018-04-17 14:55 | Inpatient (IN) | payer OTHER, MEDICAID ==
[~2018-04-17] VITALS: Ht 167.6 cm; Wt 97.1 kg
[~2018-04-17 14:55] MED LIST changes: -AMIO100T4 PO; +DIGO125T82 PO; +FLUT30CR12 TP; -GLIP5TAB12 MT; -LISI10TA5 PO; +NITR0.4T49 SL; -OLME20TA22 PO; -POTA25TA8 PO; -WARF7.5T22 PO
[2018-04-17 17:14] LABS: HEMATOCRIT. 22.8 % (36.0-48.0); MEAN CORPUSCULAR HEMOGLOBIN 20.4 pg (28.0-32.0); MEAN CORPUSCULAR VOLUME 68.9 fL (81.0-99.0); MEAN PLATELET VOLUME 7.1 fl (7.4-10.4); PLATELET 311 x1000/uL (130-400); RED BLOOD CELL COUNT 3.31 mill/uL (4.2-5.4); RED CELL DISTRIBUTION WIDTH 21.9 % (11.6-14.6)
[2018-04-17 17:19] LABS: HEMOGLOBIN. 6.7 g/dL (12.0-16.0)
[2018-04-17 17:20] LABS: CHLORIDE 105 mEq/L (98-107)
[2018-04-17 17:23] LABS: INR 2.4; PROTHROMBIN TIME 24.1 sec (9.1-11.1)
[2018-04-17 17:40] LABS: NUCLEATED RED BLOOD CELLS 2 /100 WBC; PLATELET ESTIMATE NORMAL
[2018-04-17 22:30] VITALS: BP 123/77
[2018-04-17] MEDS ORDERED: SACU1TAB MT (23:49)
[2018-04-18] VITALS (9 sets, daily range): BP systolic 96–130; BP diastolic 61–84
[2018-04-18] MEDS ORDERED: ACETAMINOPHEN 325MG TABLET PO PRN (00:15)
[2018-04-18] MEDS ORDERED: DEXTROSE 50% WATER 50ML SYRINGE IV PRN (00:15)
[2018-04-18] MEDS ORDERED: DILTIAZEM HCL 30 MG PO SCH (00:30)
[2018-04-18] MEDS ORDERED: NITROGLYCERIN 0.4 MG SL SCH (00:30)
[2018-04-18] MEDS ORDERED: NITROGLYCERIN 0.4MG TABLET SL SL PRN (01:00)
[2018-04-18] MEDS: DILTIAZEM HCL 30MG TABLET PO SCH ×3 (01:39→17:43)
[2018-04-18] MEDS: BLOOD SUGAR DIAGNOSTIC STRIP TEST SCH ×4 (06:20→21:47)
[2018-04-18] MEDS ORDERED: FUROSEMIDE 40MG TABLET PO SCH (07:15)
[2018-04-18] MEDS: INSULIN LISPRO 100 UNITS/ML SUBCUT SCH ×4 (07:16→21:00)
[2018-04-18] MEDS ORDERED: PANTOPRAZOLE 40MG DR TABLET PO SCH (07:20)
[2018-04-18] MEDS ORDERED: MEDICATION NOT ON FORMULARY EA (Furosemide 1 TAB) MT SCH (09:00)
[2018-04-18] MEDS ORDERED: MEDICATION NOT ON FORMULARY EA (Pantoprazole Sodium (Protonix) 1 TAB) PO SCH (09:00)
[2018-04-18] MEDS ORDERED: MEDICATION NOT ON FORMULARY EA (Isosorbide Mononitrate (Isosorbide Mononitrate Er) 1 TAB PO SCH (09:00)
[2018-04-18] MEDS: CARVEDILOL 25MG TABLET PO SCH ×2 (09:00→21:00)
[2018-04-18] MEDS ORDERED: MEDICATION NOT ON FORMULARY EA (Metformin HCl (Metformin HCl ER) 1 TAB) MT SCH (09:00)
[2018-04-18] MEDS: METFORMIN HCL 500MG TABLET PO SCH ×2 (09:05→18:11)
[2018-04-18] MEDS: ISOSORBIDE MONONITRATE 30MG TABLET SR 24HR PO SCH (09:05)
[2018-04-18 10:15] LABS: BASOPHILS % 0.5 % (0.0-2.0); HEMATOCRIT. 25.8 % (36.0-48.0); LYMPHOCYTES % 29.2 % (20.0-50.0); MEAN CORPUSCULAR HEMOGLOBIN 22.1 pg (28.0-32.0); MEAN CORPUSCULAR VOLUME 71.3 fL (81.0-99.0); MEAN PLATELET VOLUME 7.4 fl (7.4-10.4); MONOCYTES % 9.9 % (2.0-8.0); NEUTROPHILS % 60.4 % (40.0-76.0); PLATELET 297 x1000/uL (130-400); RED BLOOD CELL COUNT 3.61 mill/uL (4.2-5.4)
[2018-04-18 10:53] LABS: T4 FREE 1.53 ng/dL (0.76-1.46)
[2018-04-18] MEDS: FUROSEMIDE 40MG/4ML VIAL IVP SCH ×2 (10:59→17:43)
[2018-04-18 11:11] LABS: DIGOXIN 0.1 ng/mL (0.9-2.0)
[2018-04-18 11:21] LABS: VITAMIN B12 SERUM 166 pg/mL (211-911)
[2018-04-18 13:00] LABS: INR 2.1; PROTHROMBIN TIME 20.5 sec (9.1-11.1)
[2018-04-18] MEDS ORDERED: MAGNESIUM 2 G PREMIX 50 ML IV NR (13:00)
[2018-04-18] MEDS: PANTOPRAZOLE SODIUM 40 MG/VIAL IV SCH (15:26)
[2018-04-18 15:45] LABS: HEMATOCRIT 26.1 % (36.0-48.0); HEMOGLOBIN 7.9 g/dL (12.0-16.0)
[2018-04-18] MEDS ORDERED: SORBITOL 70% SOLN 30ML PO ONE ×2 (16:30→20:30)
[2018-04-18] MEDS: DIGOXIN 125MCG TABLET PO SCH (17:43)
[2018-04-18] MEDS: MONTELUKAST SODIUM 10MG TABLET PO SCH (21:47)
[2018-04-18] MEDS: ATORVASTATIN CALCIUM 40MG TABLET PO SCH (21:47)
[2018-04-19 00:29] VITALS: BP 127/82
[2018-04-19] MEDS: DILTIAZEM HCL 30MG TABLET PO SCH ×3 (02:36→17:14)
[2018-04-19 04:00] VITALS: BP 105/56
[2018-04-19] MEDS: PANTOPRAZOLE SODIUM 40 MG/VIAL IV SCH (06:31)
[2018-04-19] MEDS: FUROSEMIDE 40MG/4ML VIAL IVP SCH ×2 (06:31→17:14)
[2018-04-19] MEDS: BLOOD SUGAR DIAGNOSTIC STRIP TEST SCH ×4 (06:32→21:02)
[2018-04-19 06:49] LABS: BASOPHILS % 0.9 % (0.0-2.0); HEMATOCRIT. 23.9 % (36.0-48.0); HEMOGLOBIN. 7.3 g/dL (12.0-16.0); LYMPHOCYTES % 29.4 % (20.0-50.0); MEAN CORPUSCULAR HEMOGLOBIN 21.4 pg (28.0-32.0); MEAN PLATELET VOLUME 7.4 fl (7.4-10.4); MONOCYTES % 10.8 % (2.0-8.0); NEUTROPHILS % 58.9 % (40.0-76.0); PLATELET 266 x1000/uL (130-400); RED BLOOD CELL COUNT 3.41 mill/uL (4.2-5.4); RED CELL DISTRIBUTION WIDTH 23.3 % (11.6-14.6)
[2018-04-19 06:55] LABS: INR 1.9; PARTIAL THROMBOPLASTIN TIME 35.2 sec (23.4-31.0); PROTHROMBIN TIME 18.8 sec (9.1-11.1)
[2018-04-19 07:05] LABS: CHLORIDE 105 mEq/L (98-107)
[2018-04-19] MEDS: INSULIN LISPRO 100 UNITS/ML SUBCUT SCH ×4 (07:50→21:00)
[2018-04-19] MEDS: METFORMIN HCL 500MG TABLET PO SCH ×2 (07:50→17:15)
[2018-04-19 08:55] VITALS: BP 103/62
[2018-04-19] MEDS: ISOSORBIDE MONONITRATE 30MG TABLET SR 24HR PO SCH (09:00)
[2018-04-19] MEDS: CARVEDILOL 25MG TABLET PO SCH ×2 (09:00→21:19)
[2018-04-19] MEDS ORDERED: SIMETHICONE 40 MG/0.6 ML 30ML ONE (10:38)
[2018-04-19] MEDS ORDERED: SODIUM CHLORIDE 0.9% 10ML VIAL ONE (10:38)
[2018-04-19 12:39] VITALS: BP 114/76
[2018-04-19 13:12] LABS: HEMATOCRIT 25.5 % (36.0-48.0); HEMOGLOBIN 7.7 g/dL (12.0-16.0)
[2018-04-19] MEDS ORDERED: KCL 20MEQ/100ML PREMIX 100 ML IV NR ×2 (14:00→20:00)
[2018-04-19] MEDS ORDERED: MIDAZOLAM HCL 5 MG/5 ML VIAL ONE (14:28)
[2018-04-19] MEDS ORDERED: FENTANYL CITRATE/PF 50MCG/ML 2ML VIAL ONE (14:29)
[2018-04-19] MEDS ORDERED: FENTANYL CITRATE/PF 50MCG/ML 2ML VIAL IV PRN (14:34)
[2018-04-19] MEDS ORDERED: MIDAZOLAM HCL 5 MG/5 ML VIAL IV PRN (14:36)
[2018-04-19] MEDS ORDERED: CYANOCOBALAMIN 1000MCG/ML VIAL SUBCUT NR (15:30)
[2018-04-19] MEDS ORDERED: MAGNESIUM 1 G PREMIX 100 ML IV NR (16:00)
[2018-04-19 17:10] VITALS: BP 125/73
[2018-04-19] MEDS: FERROUS SULFATE 325MG TABLET PO SCH (17:15)
[2018-04-19] MEDS: DIGOXIN 125MCG TABLET PO SCH (17:15)
[2018-04-19] MEDS: BUDESONIDE 0.5MG/2ML NEB HHN SCH ×2 (17:21→23:23)
[2018-04-19] MEDS: IPRATROPIUM/ALBUTEROL 0.5-3(2.5)MG/3ML NEB HHN PRN (17:24)
[2018-04-19 20:00] VITALS: BP 112/65
[2018-04-19] MEDS: MONTELUKAST SODIUM 10MG TABLET PO SCH (21:18)
[2018-04-19] MEDS: ATORVASTATIN CALCIUM 40MG TABLET PO SCH (21:18)
[2018-04-19] MEDS: SACUBITRIL/VALSARTAN 24/26 TAB PO SCH (22:35)
[2018-04-20] VITALS: BP 121/64
[2018-04-20] MEDS: DILTIAZEM HCL 30MG TABLET PO SCH ×3 (01:40→18:00)
[2018-04-20 04:00] VITALS: BP 102/57
[2018-04-20] MEDS: FUROSEMIDE 40MG/4ML VIAL IVP SCH ×2 (06:24→18:32)
[2018-04-20] MEDS: OMEPRAZOLE 20MG CAPSULE EXTENDED RELEASE PO SCH (06:24)
[2018-04-20] MEDS: BLOOD SUGAR DIAGNOSTIC STRIP TEST SCH ×4 (06:25→20:50)
[2018-04-20] MEDS: INSULIN LISPRO 100 UNITS/ML SUBCUT SCH ×4 (07:50→20:51)
[2018-04-20] MEDS: BUDESONIDE 0.5MG/2ML NEB HHN SCH ×2 (07:57→22:17)
[2018-04-20] MEDS: IPRATROPIUM/ALBUTEROL 0.5-3(2.5)MG/3ML NEB HHN PRN (07:59)
[2018-04-20 08:00] VITALS: BP 105/66
[2018-04-20] MEDS: METFORMIN HCL 500MG TABLET PO SCH ×2 (09:03→18:32)
[2018-04-20] MEDS: ISOSORBIDE MONONITRATE 30MG TABLET SR 24HR PO SCH (09:03)
[2018-04-20] MEDS: CARVEDILOL 25MG TABLET PO SCH ×2 (09:04→20:50)
[2018-04-20] MEDS: FERROUS SULFATE 325MG TABLET PO SCH ×3 (09:04→18:31)
[2018-04-20] MEDS: CYANOCOBALAMIN 1000MCG/ML VIAL SUBCUT SCH (09:05)
[2018-04-20] MEDS: SACUBITRIL/VALSARTAN 24/26 TAB PO SCH ×2 (09:05→20:50)
[2018-04-20 12:00] VITALS: BP 91/44
[2018-04-20] MEDS ORDERED: SODIUM BICARBONATE 4% (2.4MEQ) 5ML VIAL IV ONE (13:28)
[2018-04-20] MEDS ORDERED: LIDOCAINE HCL 1% 20ML VIAL (Pyxis) INJ ONE (13:28)
[2018-04-20 13:44] LABS: HEMATOCRIT. 24.6 % (36.0-48.0); HEMOGLOBIN. 7.4 g/dL (12.0-16.0); MEAN CORPUSCULAR HEMOGLOBIN 21.5 pg (28.0-32.0); MEAN CORPUSCULAR VOLUME 70.9 fL (81.0-99.0); MEAN PLATELET VOLUME 7.1 fl (7.4-10.4); PLATELET 265 x1000/uL (130-400); RED BLOOD CELL COUNT 3.47 mill/uL (4.2-5.4); RED CELL DISTRIBUTION WIDTH 23.6 % (11.6-14.6)
[2018-04-20 13:50] LABS: INR 1.6; PROTHROMBIN TIME 15.9 sec (9.1-11.1)
[2018-04-20 14:20] LABS: NUCLEATED RED BLOOD CELLS 1 /100 WBC
[2018-04-20 14:21] LABS: PLATELET ESTIMATE NORMAL
[2018-04-20 15:26] LABS: CHLORIDE 106 mEq/L (98-107)
[2018-04-20 16:00] VITALS: BP 95/64
[2018-04-20] MEDS ORDERED: WARFARIN SODIUM 3MG TABLET PO SCH (18:00)
[2018-04-20] MEDS: DIGOXIN 125MCG TABLET PO SCH (18:31)
[2018-04-20 19:57] VITALS: BP 110/65
[2018-04-20] MEDS: MONTELUKAST SODIUM 10MG TABLET PO SCH (20:50)
[2018-04-20] MEDS: ATORVASTATIN CALCIUM 40MG TABLET PO SCH (20:50)
[2018-04-21 00:10] VITALS: BP 115/58
[2018-04-21] MEDS: DILTIAZEM HCL 30MG TABLET PO SCH ×3 (02:40→18:05)
[2018-04-21 04:00] VITALS: BP 120/60
[2018-04-21] MEDS: FUROSEMIDE 40MG/4ML VIAL IVP SCH ×2 (06:14→18:06)
[2018-04-21] MEDS: BLOOD SUGAR DIAGNOSTIC STRIP TEST SCH ×4 (06:14→20:43)
[2018-04-21] MEDS: OMEPRAZOLE 20MG CAPSULE EXTENDED RELEASE PO SCH (06:14)
[2018-04-21] MEDS: INSULIN LISPRO 100 UNITS/ML SUBCUT SCH ×4 (07:50→20:43)
[2018-04-21 08:00] VITALS: BP 110/79
[2018-04-21 08:08] LABS: BASOPHILS % 0.7 % (0.0-2.0); HEMATOCRIT. 25.8 % (36.0-48.0); HEMOGLOBIN. 7.9 g/dL (12.0-16.0); LYMPHOCYTES % 26.8 % (20.0-50.0); MEAN CORPUSCULAR VOLUME 71.5 fL (81.0-99.0); MEAN PLATELET VOLUME 7.4 fl (7.4-10.4); MONOCYTES % 10.2 % (2.0-8.0); NEUTROPHILS % 62.3 % (40.0-76.0); PLATELET 251 x1000/uL (130-400); RED BLOOD CELL COUNT 3.61 mill/uL (4.2-5.4); RED CELL DISTRIBUTION WIDTH 24.1 % (11.6-14.6)
[2018-04-21 08:10] LABS: INR 1.5; PROTHROMBIN TIME 14.8 sec (9.1-11.1)
[2018-04-21] MEDS: BUDESONIDE 0.5MG/2ML NEB HHN SCH (08:19)
[2018-04-21] MEDS: ISOSORBIDE MONONITRATE 30MG TABLET SR 24HR PO SCH (09:00)
[2018-04-21 09:52] LABS: CHLORIDE 105 mEq/L (98-107)
[2018-04-21] MEDS: CARVEDILOL 25MG TABLET PO SCH ×2 (10:10→20:42)
[2018-04-21] MEDS: SACUBITRIL/VALSARTAN 24/26 TAB PO SCH ×2 (10:11→20:42)
[2018-04-21] MEDS: FERROUS SULFATE 325MG TABLET PO SCH ×3 (10:12→18:05)
[2018-04-21] MEDS: METFORMIN HCL 500MG TABLET PO SCH ×2 (10:12→18:04)
[2018-04-21] MEDS: CYANOCOBALAMIN 1000MCG/ML VIAL SUBCUT SCH (10:12)
[2018-04-21 12:00] VITALS: BP 103/65
[2018-04-21 16:00] VITALS: BP 123/73
[2018-04-21] MEDS ORDERED: WARFARIN SODIUM 7.5MG TABLET PO SCH (18:00)
[2018-04-21] MEDS: DIGOXIN 125MCG TABLET PO SCH (18:04)
[2018-04-21 20:05] VITALS: BP 129/72
[2018-04-21] MEDS: IPRATROPIUM/ALBUTEROL 0.5-3(2.5)MG/3ML NEB HHN PRN (20:32)
[2018-04-21] MEDS: ATORVASTATIN CALCIUM 40MG TABLET PO SCH (20:42)
[2018-04-21] MEDS: MONTELUKAST SODIUM 10MG TABLET PO SCH (20:42)
[2018-04-22 00:02] VITALS: BP 122/51
[2018-04-22 00:02] LABS: BG BASE EXCESS 8.1 mmol/L (-2.0-2.0); BG CARBOXYHEMOGLOBIN 1.4 % (0.5-1.5); BG DEOXYHEMOGLOBIN 8.5 % (0.0-5.0); BG FRACTION INSPIRED OXYGEN 28; BG METHEMOGLOBIN 0.4 % (0.0-1.5); BG OXYGEN SATURATION 91.3 % (92.0-98.5); BG OXYHEMOGLOBIN 89.7 % (94.0-97.0); BG PCO2 41.9 mmHg (35.0-45.0); BG PH 7.501 (7.350-7.450); BG PO2 59.3 mmHg (75.0-100.0); BG SAMPLE SITE LEFT RADIAL; BG TOTAL HEMOGLOBIN 8.2 g/dL (12.0-18.0); BG VENT MODE NASAL CANNULA
[2018-04-22] MEDS: DILTIAZEM HCL 30MG TABLET PO SCH ×3 (01:09→17:27)
[2018-04-22 04:02] VITALS: BP 107/56
[2018-04-22] MEDS: FUROSEMIDE 40MG/4ML VIAL IVP SCH ×2 (06:14→17:23)
[2018-04-22] MEDS: OMEPRAZOLE 20MG CAPSULE EXTENDED RELEASE PO SCH (06:24)
[2018-04-22] MEDS: BLOOD SUGAR DIAGNOSTIC STRIP TEST SCH ×4 (06:24→20:30)
[2018-04-22 07:43] LABS: INR 1.4; PROTHROMBIN TIME 14.2 sec (9.1-11.1)
[2018-04-22] MEDS: INSULIN LISPRO 100 UNITS/ML SUBCUT SCH ×4 (07:50→20:30)
[2018-04-22] MEDS: GUAIFENESIN 200MG/10ML SUGAR FREE UDC PO PRN ×2 (08:52→20:30)
[2018-04-22] MEDS: ISOSORBIDE MONONITRATE 30MG TABLET SR 24HR PO SCH (08:53)
[2018-04-22] MEDS: SACUBITRIL/VALSARTAN 24/26 TAB PO SCH ×2 (08:53→20:29)
[2018-04-22] MEDS: METFORMIN HCL 500MG TABLET PO SCH ×2 (08:53→17:26)
[2018-04-22] MEDS: CYANOCOBALAMIN 1000MCG/ML VIAL SUBCUT SCH (08:54)
[2018-04-22] MEDS: FERROUS SULFATE 325MG TABLET PO SCH ×3 (08:54→17:26)
[2018-04-22] MEDS: CARVEDILOL 25MG TABLET PO SCH ×2 (08:54→20:30)
[2018-04-22 12:00] VITALS: BP 100/55
[2018-04-22 16:00] VITALS: BP 90/48
[2018-04-22] MEDS: POTASSIUM CHLORIDE 10MEQ TABLET SR PO SCH (17:23)
[2018-04-22] MEDS: DIGOXIN 125MCG TABLET PO SCH (17:26)
[2018-04-22] MEDS ORDERED: WARFARIN SODIUM 7.5MG TABLET PO SCH (18:00)
[2018-04-22 20:02] VITALS: BP 115/86
[2018-04-22] MEDS: MONTELUKAST SODIUM 10MG TABLET PO SCH (20:29)
[2018-04-22] MEDS: ATORVASTATIN CALCIUM 40MG TABLET PO SCH (20:29)
[2018-04-23] VITALS: BP 108/70
[2018-04-23] MEDS: DILTIAZEM HCL 30MG TABLET PO SCH ×3 (01:30→17:45)
[2018-04-23 04:00] VITALS: BP 104/53
[2018-04-23] MEDS: OMEPRAZOLE 20MG CAPSULE EXTENDED RELEASE PO SCH (06:18)
[2018-04-23] MEDS: FUROSEMIDE 40MG/4ML VIAL IVP SCH ×2 (06:18→17:44)
[2018-04-23] MEDS: BLOOD SUGAR DIAGNOSTIC STRIP TEST SCH ×4 (06:24→21:50)
[2018-04-23] MEDS: INSULIN LISPRO 100 UNITS/ML SUBCUT SCH ×4 (07:50→21:50)
[2018-04-23 08:00] VITALS: BP 116/70
[2018-04-23 08:15] LABS: INR 1.5; PROTHROMBIN TIME 15.3 sec (9.1-11.1)
[2018-04-23] MEDS: POTASSIUM CHLORIDE 10MEQ TABLET SR PO SCH (09:18)
[2018-04-23] MEDS: FERROUS SULFATE 325MG TABLET PO SCH ×3 (09:18→17:45)
[2018-04-23] MEDS: ISOSORBIDE MONONITRATE 30MG TABLET SR 24HR PO SCH (09:19)
[2018-04-23] MEDS: CARVEDILOL 25MG TABLET PO SCH ×3 (09:19→21:45)
[2018-04-23] MEDS: CYANOCOBALAMIN 1000MCG/ML VIAL SUBCUT SCH (09:20)
[2018-04-23] MEDS: SACUBITRIL/VALSARTAN 24/26 TAB PO SCH ×2 (09:20→21:42)
[2018-04-23] MEDS: METFORMIN HCL 500MG TABLET PO SCH ×2 (09:20→17:45)
[2018-04-23 12:00] VITALS: BP 106/56
[2018-04-23 12:12] LABS: HEMATOCRIT 26.2 % (36.0-48.0); HEMOGLOBIN 7.8 g/dL (12.0-16.0); MEAN CORPUSCULAR HEMOGLOBIN 21.4 pg (28.0-32.0); MEAN CORPUSCULAR VOLUME 71.6 fL (81.0-99.0); PLATELET 227 x1000/uL (130-400); RED BLOOD CELL COUNT 3.66 mill/uL (4.2-5.4)
[2018-04-23 12:29] LABS: CHLORIDE 104 mEq/L (98-107)
[2018-04-23 16:00] VITALS: BP 107/64
[2018-04-23] MEDS: DIGOXIN 125MCG TABLET PO SCH (17:45)
[2018-04-23] MEDS ORDERED: WARFARIN SODIUM 7.5MG TABLET PO SCH (18:00)
[2018-04-23 20:00] VITALS: BP 100/40
[2018-04-23] MEDS: ATORVASTATIN CALCIUM 40MG TABLET PO SCH (21:42)
[2018-04-23] MEDS: ENOXAPARIN 100MG/ML SYR SUBCUT SCH (21:43)
[2018-04-23] MEDS: MONTELUKAST SODIUM 10MG TABLET PO SCH (21:44)
[2018-04-24] VITALS (10 sets, daily range): BP systolic 94–160; BP diastolic 52–89
[2018-04-24] MEDS: DILTIAZEM HCL 30MG TABLET PO SCH ×3 (02:00→17:37)
[2018-04-24 06:21] LABS: BASOPHILS % 0.8 % (0.0-2.0); HEMATOCRIT. 24.4 % (36.0-48.0); HEMOGLOBIN. 7.4 g/dL (12.0-16.0); LYMPHOCYTES % 28.7 % (20.0-50.0); MEAN CORPUSCULAR HEMOGLOBIN 21.8 pg (28.0-32.0); MEAN CORPUSCULAR VOLUME 71.3 fL (81.0-99.0); MEAN PLATELET VOLUME 7.6 fl (7.4-10.4); MONOCYTES % 13.1 % (2.0-8.0); NEUTROPHILS % 57.4 % (40.0-76.0); PLATELET 210 x1000/uL (130-400); RED BLOOD CELL COUNT 3.42 mill/uL (4.2-5.4); RED CELL DISTRIBUTION WIDTH 25.2 % (11.6-14.6)
[2018-04-24 06:28] LABS: INR 1.8; PROTHROMBIN TIME 17.5 sec (9.1-11.1)
[2018-04-24 06:36] LABS: CHLORIDE 106 mEq/L (98-107)
[2018-04-24] MEDS: BLOOD SUGAR DIAGNOSTIC STRIP TEST SCH ×4 (07:20→21:46)
[2018-04-24] MEDS: INSULIN LISPRO 100 UNITS/ML SUBCUT SCH ×4 (07:50→21:00)
[2018-04-24] MEDS: GUAIFENESIN 200MG/10ML SUGAR FREE UDC PO PRN (08:48)
[2018-04-24] MEDS: CYANOCOBALAMIN 1000MCG/ML VIAL SUBCUT SCH (08:50)
[2018-04-24] MEDS: ISOSORBIDE MONONITRATE 30MG TABLET SR 24HR PO SCH (08:50)
[2018-04-24] MEDS: METFORMIN HCL 500MG TABLET PO SCH ×2 (08:51→17:36)
[2018-04-24] MEDS: OMEPRAZOLE 20MG CAPSULE EXTENDED RELEASE PO SCH (08:51)
[2018-04-24] MEDS: POTASSIUM CHLORIDE 10MEQ TABLET SR PO SCH (08:52)
[2018-04-24] MEDS: FUROSEMIDE 40MG/4ML VIAL IVP SCH ×2 (08:52→22:27)
[2018-04-24] MEDS: FERROUS SULFATE 325MG TABLET PO SCH ×3 (08:53→17:36)
[2018-04-24] MEDS: ENOXAPARIN 100MG/ML SYR SUBCUT SCH ×2 (09:00→21:20)
[2018-04-24] MEDS: SACUBITRIL/VALSARTAN 24/26 TAB PO SCH ×2 (09:30→21:21)
[2018-04-24] MEDS ORDERED: MAGNESIUM 1 G PREMIX 100 ML IV NR (12:00)
[2018-04-24] MEDS ORDERED: FUROSEMIDE 40MG/4ML VIAL IVP NR (14:00)
[2018-04-24] MEDS: DIGOXIN 125MCG TABLET PO SCH (17:35)
[2018-04-24] MEDS ORDERED: WARFARIN SODIUM 7.5MG TABLET PO NR (18:00)
[2018-04-24] MEDS: ATORVASTATIN CALCIUM 40MG TABLET PO SCH (21:20)
[2018-04-24] MEDS: MONTELUKAST SODIUM 10MG TABLET PO SCH (21:21)
[2018-04-24] MEDS: CARVEDILOL 25MG TABLET PO SCH (21:21)
[2018-04-25] VITALS: BP 111/75
[2018-04-25 01:13] LABS: BASOPHILS % 0.6 % (0.0-2.0); LYMPHOCYTES % 25.5 % (20.0-50.0); MEAN CORPUSCULAR HEMOGLOBIN 21.8 pg (28.0-32.0); MEAN CORPUSCULAR VOLUME 73.2 fL (81.0-99.0); MEAN PLATELET VOLUME 8.4 fl (7.4-10.4); MONOCYTES % 10.4 % (2.0-8.0); NEUTROPHILS % 63.5 % (40.0-76.0); PLATELET 213 x1000/uL (130-400)
[2018-04-25 01:39] LABS: INR 1.8; PROTHROMBIN TIME 18.2 sec (9.1-11.1)
[2018-04-25] MEDS: DILTIAZEM HCL 30MG TABLET PO SCH ×2 (02:12→09:08)
[2018-04-25 04:00] VITALS: BP 105/63
[2018-04-25 06:24] LABS: BASOPHILS % 1.1 % (0.0-2.0); HEMATOCRIT. 26.4 % (36.0-48.0); HEMOGLOBIN. 8.1 g/dL (12.0-16.0); MEAN CORPUSCULAR HEMOGLOBIN 22.3 pg (28.0-32.0); MEAN CORPUSCULAR VOLUME 72.3 fL (81.0-99.0); MEAN PLATELET VOLUME 8.1 fl (7.4-10.4); NEUTROPHILS % 56.9 % (40.0-76.0); PLATELET 208 x1000/uL (130-400); RED BLOOD CELL COUNT 3.65 mill/uL (4.2-5.4); RED CELL DISTRIBUTION WIDTH 25.1 % (11.6-14.6)
[2018-04-25] MEDS: BLOOD SUGAR DIAGNOSTIC STRIP TEST SCH ×2 (06:24→12:20)
[2018-04-25] MEDS: FUROSEMIDE 40MG/4ML VIAL IVP SCH (06:24)
[2018-04-25] MEDS: OMEPRAZOLE 20MG CAPSULE EXTENDED RELEASE PO SCH (06:24)
[2018-04-25 07:05] LABS: CHLORIDE 106 mEq/L (98-107)
[2018-04-25 07:13] LABS: INR 1.9; PROTHROMBIN TIME 19.2 sec (9.1-11.1)
[2018-04-25] MEDS: INSULIN LISPRO 100 UNITS/ML SUBCUT SCH ×2 (07:50→13:41)
[2018-04-25] MEDS: ENOXAPARIN 100MG/ML SYR SUBCUT SCH (09:00)
[2018-04-25] MEDS: CYANOCOBALAMIN 1000MCG/ML VIAL SUBCUT SCH (09:00)
[2018-04-25] MEDS: CARVEDILOL 25MG TABLET PO SCH (09:07)
[2018-04-25] MEDS: POTASSIUM CHLORIDE 10MEQ TABLET SR PO SCH (09:07)
[2018-04-25] MEDS: ISOSORBIDE MONONITRATE 30MG TABLET SR 24HR PO SCH (09:07)
[2018-04-25] MEDS: METFORMIN HCL 500MG TABLET PO SCH (09:07)
[2018-04-25] MEDS: SACUBITRIL/VALSARTAN 24/26 TAB PO SCH (09:08)
[2018-04-25] MEDS: FERROUS SULFATE 325MG TABLET PO SCH ×2 (09:08→13:42)
[2018-04-25 10:41] VITALS: BP 140/76
[2018-04-25 12:00] VITALS: BP 109/62
[2018-04-25 12:12] LABS: HEMATOCRIT 26.9 % (36.0-48.0); HEMOGLOBIN 8.2 g/dL (12.0-16.0)
[2018-04-25] MEDS ORDERED: WARFARIN SODIUM 4MG TABLET PO NR (18:00)
[2018-04-26] MEDS ORDERED: FUROSEMIDE 40MG/4ML VIAL IVP SCH (09:00)
== END 2018-04-25 15:52 | disposition home or self-care (01) | DRG 811 ==
LOC: ER 14:55 → 6WST 17:58 → EDBEDREQTM 18:00 → EDBEDREQ 18:00 → ENRESERV 18:52
PROVIDERS: ADMIT Internal Medicine; ATTEND Internal Medicine
PROC: 30233N1 Transfusion of Nonautologous Red Blood Cells into Peripheral Vein, Percutaneous Approach (ICD-10-PCS; 2018-04-17)
PROC: 0DB68ZX Excision of Stomach, Via Natural or Artificial Opening Endoscopic, Diagnostic (ICD-10-PCS; 2018-04-19)
PROC: 0DJD8ZZ Inspection of Lower Intestinal Tract, Via Natural or Artificial Opening Endoscopic (ICD-10-PCS; principal; 2018-04-19 14:00)
PROC: 02HV33Z Insertion of Infusion Device into Superior Vena Cava, Percutaneous Approach (ICD-10-PCS; 2018-04-20)
PROC: B5181ZA Fluoroscopy of Superior Vena Cava using Low Osmolar Contrast, Guidance (ICD-10-PCS; 2018-04-20)
PROC: B548ZZA Ultrasonography of Superior Vena Cava, Guidance (ICD-10-PCS; 2018-04-20)
DX: D50.9 Iron deficiency anemia, unspecified (principal); I50.23 Acute on chronic systolic (congestive) heart failure; I13.0 Hypertensive heart and chronic kidney disease with heart failure and stage 1 through stage 4 chronic kidney disease, or unspecified chronic kidney disease; J44.1 Chronic obstructive pulmonary disease with (acute) exacerbation; D68.9 Coagulation defect, unspecified; I42.0 Dilated cardiomyopathy; K31.7 Polyp of stomach and duodenum; K57.30 Diverticulosis of large intestine without perforation or abscess without bleeding; I27.20 Pulmonary hypertension, unspecified; E66.9 Obesity, unspecified; N18.9 Chronic kidney disease, unspecified; E53.8 Deficiency of other specified B group vitamins; I48.2 Chronic atrial fibrillation; D72.819 Decreased white blood cell count, unspecified; E11.22 Type 2 diabetes mellitus with diabetic chronic kidney disease; E83.42 Hypomagnesemia; E87.6 Hypokalemia; T45.515A Adverse effect of anticoagulants, initial encounter; I36.1 Nonrheumatic tricuspid (valve) insufficiency; Z60.2 Problems related to living alone; Z79.01 Long term (current) use of anticoagulants; Z82.49 Family history of ischemic heart disease and other diseases of the circulatory system; Z83.3 Family history of diabetes mellitus; Z95.1 Presence of aortocoronary bypass graft; Z95.3 Presence of xenogenic heart valve; Z88.6 Allergy status to analgesic agent; Z86.73 Personal history of transient ischemic attack (TIA), and cerebral infarction without residual deficits; Z79.899 Other long term (current) drug therapy; Z79.82 Long term (current) use of aspirin; Z79.84 Long term (current) use of oral hypoglycemic drugs; I25.2 Old myocardial infarction; Z68.34 Body mass index [BMI] 34.0-34.9, adult; Y92.89 Other specified places as the place of occurrence of the external cause
CPT/HCPCS: 36415; 36569; 36600; 71045; 76937; 77001; 80048; 80162; 82270; 82375; 82607; 82728; 82805; 82962; 83540; 83550; 83605; 83735; 83880; 84439; 84443; 84484; 85014; 85018; 85027; 85384; 86850; 86900; 86920; 88305; 88312; 88313; 93005; 94640; 99291; A4216; C1725; C9113; J1650; J1815; J1940; J2250; J3010; J3420; J3475; J3480; J3490; J7040; J7050; J7620; J7626; P9016

== ENCOUNTER 2019-05-02 11:17 | Inpatient (IN) | payer MEDICARE, MEDICAID ==
[~2019-05-02] VITALS: Ht 167.6 cm; Wt 86.7 kg
[~2019-05-02 11:17] MED LIST changes: -ASPI-1159 PO; +ASPI-1497 PO; +DIGO125T80 PO; -DIGO125T82 PO; +FLUT30CR TP; -FLUT30CR12 TP; +SACU1TAB MT
[2019-05-02] MEDS ORDERED: FUROSEMIDE 40MG/4ML VIAL IV ONE (11:30)
[2019-05-02] MEDS ORDERED: ASPIRIN 81MG TABLET PO ONE (11:30)
[2019-05-02] MEDS ORDERED: NITROGLYCERIN 0.4MG TABLET SL SL PRN (11:30)
[2019-05-02 11:41] LABS: BASOPHILS % 0.8 % (0.0-2.0); EOSINOPHILS % 0.5 % (0.0-5.0); HEMATOCRIT. 35.7 % (36.0-48.0); HEMOGLOBIN. 11.5 g/dL (12.0-16.0); LYMPHOCYTES % 25.4 % (20.0-50.0); MEAN CORPUSCULAR HEMOGLOBIN 29.2 pg (28.0-32.0); MEAN CORPUSCULAR VOLUME 90.9 fL (81.0-99.0); MEAN PLATELET VOLUME 7.7 fl (7.4-10.4); MONOCYTES % 5.4 % (2.0-8.0); NEUTROPHILS % 67.9 % (40.0-76.0); PLATELET 187 x1000/uL (130-400); RED BLOOD CELL COUNT 3.93 mill/uL (4.2-5.4); RED CELL DISTRIBUTION WIDTH 16.9 % (11.6-14.6)
[2019-05-02 11:42] LABS: CHLORIDE 113 mEq/L (98-107)
[2019-05-02 11:48] LABS: BG BILEVEL POS AIRWAY PRESSURE 15/5; BG CARBOXYHEMOGLOBIN 1.1 % (0.5-1.5); BG DEOXYHEMOGLOBIN 3.4 % (0.0-5.0); BG FRACTION INSPIRED OXYGEN 100; BG HCO3 ACT 24.1 mmol/L (22.0-26.0); BG METHEMOGLOBIN 0.2 % (0.0-1.5); BG OXYGEN SATURATION 96.6 % (92.0-98.5); BG OXYHEMOGLOBIN 95.3 % (94.0-97.0); BG PCO2 41.4 mmHg (35.0-45.0); BG PH 7.382 (7.350-7.450); BG PO2 93.8 mmHg (75.0-100.0); BG SAMPLE SITE RIGHT BRACHIAL; BG TOTAL HEMOGLOBIN 12.1 g/dL (12.0-18.0); BG VENT MODE MASK - BIPAP
[2019-05-02] MEDS ORDERED: DILTIAZEM HCL 5MG/ML 5ML VIAL IV ONE (12:15)
[2019-05-02] MEDS ORDERED: DILTIAZEM HCL 120MG CAPSULE CD 24HR PO ONE (12:15)
[2019-05-02] MEDS ORDERED: DILTIAZEM HCL 125 MG in DEXT 5% WATER 100 ML IV ONE (14:15)
[2019-05-02] MEDS ORDERED: GUAIFENESIN 200MG/10ML SUGAR FREE UDC PO PRN (14:30)
[2019-05-02] MEDS ORDERED: ACETAMINOPHEN 325MG TABLET PO PRN (14:30)
[2019-05-02] MEDS ORDERED: DEXTROSE 50% WATER 50ML SYRINGE IV PRN (14:30)
[2019-05-02] MEDS ORDERED: DILTIAZEM HCL 125 MG in DEXT 5% WATER 100 ML IV NR (14:30)
[2019-05-02] MEDS ORDERED: DIPHENHYDRAMINE 50MG/ML VIAL IV PRN (14:30)
[2019-05-02] MEDS ORDERED: MAGNESIUM/ALUMINUM HYDROXIDE/SIMETHICONE 30ML UDC PO PRN (14:30)
[2019-05-02] MEDS ORDERED: DOCUSATE SODIUM 100MG CAPSULE PO PRN (14:30)
[2019-05-02] MEDS ORDERED: ACETAMINOPHEN 650MG SUPP PR PRN (14:30)
[2019-05-02] MEDS ORDERED: IPRATROPIUM/ALBUTEROL 0.5-3(2.5)MG/3ML NEB NEB PRN (14:30)
[2019-05-02] MEDS ORDERED: ONDANSETRON HCL 4MG/2ML INJ IV PRN (14:30)
[2019-05-02] MEDS ORDERED: HYDROCODONE/ACETAMINOPHEN 5/325MG TABLET PO PRN (14:30)
[2019-05-02] MEDS ORDERED: CLONIDINE 0.1MG TABLET PO PRN (14:30)
[2019-05-02] MEDS ORDERED: LORAZEPAM 0.5MG TABLET PO PRN (14:30)
[2019-05-02] MEDS ORDERED: DILTIAZEM HCL 30MG TABLET PO NR (14:45)
[2019-05-02] MEDS ORDERED: DILTIAZEM HCL 125 MG in DEXT 5% WATER 100 ML IV PRN (14:45)
[2019-05-02] MEDS ORDERED: DIGOXIN 125MCG TABLET PO NR (14:45)
[2019-05-02] MEDS ORDERED: FUROSEMIDE 40MG/4ML VIAL IVP NR (15:00)
[2019-05-02] MEDS ORDERED: METHYLPREDNISOLONE SOD SUCC 40 MG/ML VIAL IV NR (15:00)
[2019-05-02] MEDS ORDERED: LEVOFLOXACIN 500MG PREMIX 100 ML IV NR (15:00)
[2019-05-02 15:01] LABS: BG BASE EXCESS -2.5 mmol/L (-2.0-2.0); BG BILEVEL POS AIRWAY PRESSURE 15/5; BG CARBOXYHEMOGLOBIN 0.8 % (0.5-1.5); BG DEOXYHEMOGLOBIN 0.4 % (0.0-5.0); BG FRACTION INSPIRED OXYGEN 100; BG HCO3 ACT 21.2 mmol/L (22.0-26.0); BG METHEMOGLOBIN 0.1 % (0.0-1.5); BG OXYGEN SATURATION 99.6 % (92.0-98.5); BG OXYHEMOGLOBIN 98.7 % (94.0-97.0); BG PCO2 33.4 mmHg (35.0-45.0); BG PH 7.421 (7.350-7.450); BG PO2 256.7 mmHg (75.0-100.0); BG SAMPLE SITE RIGHT RADIAL; BG TOTAL HEMOGLOBIN 12.3 g/dL (12.0-18.0); BG VENT MODE MASK - BIPAP; BG VENT RATE 16 set
[2019-05-02 15:27] LABS: CLARITY URINE CLOUDY (CLEAR); COLOR URINE YELLOW (YELLOW); KETONES URINE NEGATIVE (NEGATIVE); LEUKOCYTE ESTERASE URINE TRACE (NEGATIVE); NITRITE URINE NEGATIVE (NEGATIVE); OCCULT BLOOD URINE NEGATIVE (NEGATIVE); PH URINE 5.5 (4.5-8.0); PROTEIN URINE 1+ (NEGATIVE); SPECIFIC GRAVITY URINE 1.014 (1.005-1.030)
[2019-05-02 15:45] LABS: *AMPHETAMINES SCREEN URINE NEGATIVE (NEGATIVE); *BARBITURATES SCREEN URINE NEGATIVE (NEGATIVE); *BENZODIAZEPINES SCREEN URINE NEGATIVE (NEGATIVE); *COCAINE SCREEN URINE NEGATIVE (NEGATIVE)
[2019-05-02 15:46] LABS: CANNABINOID URINE SCREEN NEGATIVE (NEGATIVE); METHADONE URINE SCREEN NEGATIVE (NEGATIVE); OPIATES URINE SCREEN NEGATIVE (NEGATIVE); PHENCYCLIDINE URINE SCREEN NEGATIVE (NEGATIVE)
[2019-05-02 16:20] LABS: PROTHROMBIN TIME 70.5 sec (9.6-11.0)
[2019-05-02 16:31] LABS: INR 7.5
[2019-05-02] MEDS ORDERED: INSULIN LISPRO 100 UNITS/ML SUBCUT NR (18:48)
[2019-05-02] MEDS ORDERED: NA PHOS,M-B/NA PHOS,DI-BA ENEMA 118ML PR PRN (21:00)
[2019-05-02] MEDS ORDERED: INSULIN LISPRO 100 UNITS/ML SUBCUT SCH (21:00)
[2019-05-02 21:10] VITALS: BP 129/72
[2019-05-02] MEDS: BLOOD SUGAR DIAGNOSTIC STRIP TEST SCH (21:30)
[2019-05-02 22:00] VITALS: BP 142/79
[2019-05-02] MEDS: MONTELUKAST SODIUM 10MG TABLET PO SCH (22:17)
[2019-05-02] MEDS: DILTIAZEM HCL 30MG TABLET PO SCH (22:18)
[2019-05-02] MEDS: CARVEDILOL 6.25 MG TABLET PO SCH (22:19)
[2019-05-02] MEDS: METHYLPREDNISOLONE SOD SUCC 40 MG/ML VIAL IV SCH (22:19)
[2019-05-02] MEDS: ATORVASTATIN CALCIUM 40MG TABLET PO SCH (22:21)
[2019-05-02] MEDS: SACUBITRIL/VALSARTAN 24/26 TAB PO SCH (22:22)
[2019-05-02] MEDS: INSULIN LISPRO 100 UNITS/ML SUBCUT SCH (22:37)
[2019-05-03] VITALS (12 sets, daily range): BP systolic 99–157; BP diastolic 69–101
[2019-05-03 01:15] LABS: CREATINE KINASE 49 IU/L (26-192)
[2019-05-03 01:16] LABS: CREATINE KINASE MB FRACTION < 1.0 ng/mL (0.5-3.6)
[2019-05-03] MEDS: IPRATROPIUM/ALBUTEROL 0.5-3(2.5)MG/3ML NEB NEB SCH ×2 (02:01→08:00)
[2019-05-03] MEDS: DILTIAZEM HCL 30MG TABLET PO SCH (06:19)
[2019-05-03] MEDS: METHYLPREDNISOLONE SOD SUCC 40 MG/ML VIAL IV SCH ×3 (06:24→21:49)
[2019-05-03] MEDS: BLOOD SUGAR DIAGNOSTIC STRIP TEST SCH ×5 (06:24→21:00)
[2019-05-03] MEDS: FUROSEMIDE 40MG/4ML VIAL IVP SCH ×2 (06:24→16:34)
[2019-05-03 07:14] LABS: BASOPHILS % 0.1 % (0.0-2.0); HEMATOCRIT. 33.1 % (36.0-48.0); HEMOGLOBIN. 10.8 g/dL (12.0-16.0); LYMPHOCYTES % 12.6 % (20.0-50.0); MEAN CORPUSCULAR VOLUME 88.6 fL (81.0-99.0); MEAN PLATELET VOLUME 7.9 fl (7.4-10.4); MONOCYTES % 1.3 % (2.0-8.0); PLATELET 163 x1000/uL (130-400); RED BLOOD CELL COUNT 3.73 mill/uL (4.2-5.4); RED CELL DISTRIBUTION WIDTH 16.6 % (11.6-14.6)
[2019-05-03 07:17] LABS: CHLORIDE 109 mEq/L (98-107)
[2019-05-03] MEDS: INSULIN LISPRO 100 UNITS/ML SUBCUT SCH ×4 (07:20→22:25)
[2019-05-03 07:28] LABS: LDL CHOLESTEROL 63 mg/dL (5-100); T4 FREE 1.62 ng/dL (0.76-1.46)
[2019-05-03 07:29] LABS: CREATINE KINASE 43 IU/L (26-192); CREATINE KINASE MB FRACTION < 1.0 ng/mL (0.5-3.6); HDL CHOLESTEROL 46 mg/dL (40-59)
[2019-05-03 07:32] LABS: PROTHROMBIN TIME 62.7 sec (9.6-11.0)
[2019-05-03 08:09] LABS: INR 6.7
[2019-05-03] MEDS: ISOSORBIDE MONONITRATE 30MG TABLET SR 24HR PO SCH (08:55)
[2019-05-03] MEDS: PANTOPRAZOLE 40MG DR TABLET PO SCH (08:55)
[2019-05-03] MEDS: CARVEDILOL 6.25 MG TABLET PO SCH (08:55)
[2019-05-03] MEDS: ASPIRIN 81MG EC TABLET PO SCH ×2 (09:00→13:40)
[2019-05-03] MEDS: SACUBITRIL/VALSARTAN 24/26 TAB PO SCH ×2 (10:53→20:53)
[2019-05-03] MEDS ORDERED: LEVOFLOXACIN 500MG PREMIX 100 ML IV SCH (11:00)
[2019-05-03] MEDS ORDERED: MAGNESIUM 1 G PREMIX 100 ML IV NR (14:00)
[2019-05-03] MEDS ORDERED: DEXTROSE 50% WATER 50ML SYRINGE IV PRN (14:00)
[2019-05-03] MEDS: ATORVASTATIN CALCIUM 40MG TABLET PO SCH (16:33)
[2019-05-03] MEDS: DIGOXIN 125MCG TABLET PO SCH (17:19)
[2019-05-03] MEDS: DILTIAZEM HCL 60MG TABLET PO SCH (17:22)
[2019-05-03] MEDS: MONTELUKAST SODIUM 10MG TABLET PO SCH (20:53)
[2019-05-03] MEDS: CARVEDILOL 12.5MG TABLET PO SCH (21:01)
[2019-05-04] MEDS: DILTIAZEM HCL 60MG TABLET PO SCH ×4 (00:39→17:22)
[2019-05-04 04:00] VITALS: BP 107/85
[2019-05-04] MEDS: METHYLPREDNISOLONE SOD SUCC 40 MG/ML VIAL IV SCH ×3 (06:12→21:47)
[2019-05-04] MEDS: FUROSEMIDE 40MG/4ML VIAL IVP SCH ×2 (06:19→17:27)
[2019-05-04] MEDS: BLOOD SUGAR DIAGNOSTIC STRIP TEST SCH ×4 (06:20→21:47)
[2019-05-04 06:57] LABS: HEMATOCRIT. 34.3 % (36.0-48.0); HEMOGLOBIN. 11.1 g/dL (12.0-16.0); MEAN CORPUSCULAR HEMOGLOBIN 28.9 pg (28.0-32.0); MEAN CORPUSCULAR VOLUME 89.1 fL (81.0-99.0); MEAN PLATELET VOLUME 7.7 fl (7.4-10.4); PLATELET 203 x1000/uL (130-400); RED BLOOD CELL COUNT 3.85 mill/uL (4.2-5.4); RED CELL DISTRIBUTION WIDTH 17.3 % (11.6-14.6)
[2019-05-04 07:17] LABS: CHLORIDE 107 mEq/L (98-107)
[2019-05-04 08:20] VITALS: BP 104/77
[2019-05-04] MEDS: SACUBITRIL/VALSARTAN 24/26 TAB PO SCH ×2 (08:54→20:56)
[2019-05-04] MEDS: ISOSORBIDE MONONITRATE 30MG TABLET SR 24HR PO SCH (08:54)
[2019-05-04] MEDS: ASPIRIN 81MG EC TABLET PO SCH (08:54)
[2019-05-04] MEDS: PANTOPRAZOLE 40MG DR TABLET PO SCH (08:55)
[2019-05-04] MEDS: CARVEDILOL 12.5MG TABLET PO SCH ×2 (08:55→21:48)
[2019-05-04] MEDS: INSULIN LISPRO 100 UNITS/ML SUBCUT SCH ×4 (08:59→21:47)
[2019-05-04 12:14] VITALS: BP 86/50
[2019-05-04] MEDS ORDERED: DIGOXIN 500MCG/2ML AMP IV NR (13:30)
[2019-05-04] MEDS: LEVOFLOXACIN 500MG PREMIX 100 ML IV SCH (13:53)
[2019-05-04 13:54] LABS: PLATELET ESTIMATE NORMAL
[2019-05-04] MEDS ORDERED: POTASSIUM CHLORIDE 10MEQ TABLET SR PO NR (15:45)
[2019-05-04 16:02] VITALS: BP 88/60
[2019-05-04] MEDS: ATORVASTATIN CALCIUM 40MG TABLET PO SCH (17:27)
[2019-05-04] MEDS: DIGOXIN 125MCG TABLET PO SCH (17:27)
[2019-05-04 18:23] LABS: PROTHROMBIN TIME 46.8 sec (9.6-11.0)
[2019-05-04 18:34] LABS: INR 4.9
[2019-05-04 20:30] VITALS: BP 115/86
[2019-05-04] MEDS ORDERED: VERAPAMIL HCL 2.5 MG/1 ML 2ML VIAL IV PRN ×2 (21:00→21:30)
[2019-05-04] MEDS: MONTELUKAST SODIUM 10MG TABLET PO SCH (21:48)
[2019-05-05 00:21] VITALS: BP 98/60
[2019-05-05 04:25] VITALS: BP 118/70
[2019-05-05] MEDS: DILTIAZEM HCL 60MG TABLET PO SCH ×4 (05:01→17:22)
[2019-05-05] MEDS: FUROSEMIDE 40MG/4ML VIAL IVP SCH ×2 (06:18→17:21)
[2019-05-05] MEDS: BLOOD SUGAR DIAGNOSTIC STRIP TEST SCH ×4 (06:23→21:16)
[2019-05-05 07:06] LABS: HEMATOCRIT. 38.7 % (36.0-48.0); HEMOGLOBIN. 12.6 g/dL (12.0-16.0); MEAN CORPUSCULAR HEMOGLOBIN 28.9 pg (28.0-32.0); MEAN CORPUSCULAR VOLUME 89.1 fL (81.0-99.0); MEAN PLATELET VOLUME 7.9 fl (7.4-10.4); PLATELET 243 x1000/uL (130-400); RED BLOOD CELL COUNT 4.35 mill/uL (4.2-5.4)
[2019-05-05 07:11] LABS: CHLORIDE 107 mEq/L (98-107)
[2019-05-05 07:17] LABS: INR 3.9; PROTHROMBIN TIME 37.2 sec (9.6-11.0)
[2019-05-05 08:00] VITALS: BP 123/88
[2019-05-05] MEDS: PANTOPRAZOLE 40MG DR TABLET PO SCH (08:38)
[2019-05-05] MEDS: ASPIRIN 81MG EC TABLET PO SCH (08:39)
[2019-05-05] MEDS: CARVEDILOL 12.5MG TABLET PO SCH ×2 (08:39→21:00)
[2019-05-05] MEDS: SACUBITRIL/VALSARTAN 24/26 TAB PO SCH ×2 (08:39→21:00)
[2019-05-05] MEDS: ISOSORBIDE MONONITRATE 30MG TABLET SR 24HR PO SCH (08:39)
[2019-05-05] MEDS: INSULIN LISPRO 100 UNITS/ML SUBCUT SCH ×4 (08:48→21:17)
[2019-05-05 10:49] LABS: HEPATITIS B SURFACE ANTIGEN NEGATIVE
[2019-05-05] MEDS: LEVOFLOXACIN 500MG PREMIX 100 ML IV SCH (10:54)
[2019-05-05] MEDS: METHYLPREDNISOLONE SOD SUCC 40 MG/ML VIAL IV SCH ×2 (10:54→22:26)
[2019-05-05 11:18] LABS: HEPATITIS A AB IGM NEGATIVE (NEGATIVE)
[2019-05-05 12:00] VITALS: BP 120/71
[2019-05-05] MEDS ORDERED: CLONIDINE 0.1MG TABLET PO PRN (15:00)
[2019-05-05 15:01] LABS: PLATELET ESTIMATE NORMAL
[2019-05-05 16:00] VITALS: BP 109/59
[2019-05-05] MEDS: ATORVASTATIN CALCIUM 40MG TABLET PO SCH (17:21)
[2019-05-05] MEDS: DIGOXIN 125MCG TABLET PO SCH (17:22)
[2019-05-05 20:00] VITALS: BP 98/50
[2019-05-05] MEDS: MONTELUKAST SODIUM 10MG TABLET PO SCH (21:17)
[2019-05-06] VITALS: BP 120/72
[2019-05-06] MEDS: DILTIAZEM HCL 60MG TABLET PO SCH ×3 (00:54→12:24)
[2019-05-06 04:00] VITALS: BP 103/68
[2019-05-06] MEDS: FUROSEMIDE 40MG/4ML VIAL IVP SCH (06:15)
[2019-05-06] MEDS: BLOOD SUGAR DIAGNOSTIC STRIP TEST SCH ×2 (06:25→12:12)
[2019-05-06 07:02] LABS: HEMATOCRIT 39.7 % (36.0-48.0); HEMOGLOBIN 13.1 g/dL (12.0-16.0); MEAN CORPUSCULAR HEMOGLOBIN 29.2 pg (28.0-32.0); MEAN CORPUSCULAR VOLUME 88.3 fL (81.0-99.0); PLATELET 231 x1000/uL (130-400)
[2019-05-06] MEDS: INSULIN LISPRO 100 UNITS/ML SUBCUT SCH ×2 (07:50→12:22)
[2019-05-06 08:00] VITALS: BP 120/69
[2019-05-06] MEDS: ISOSORBIDE MONONITRATE 30MG TABLET SR 24HR PO SCH (08:50)
[2019-05-06] MEDS: PANTOPRAZOLE 40MG DR TABLET PO SCH (08:50)
[2019-05-06] MEDS: ASPIRIN 81MG EC TABLET PO SCH (08:51)
[2019-05-06] MEDS: SACUBITRIL/VALSARTAN 24/26 TAB PO SCH (08:51)
[2019-05-06] MEDS: CARVEDILOL 12.5MG TABLET PO SCH (08:51)
[2019-05-06] MEDS ORDERED: POTASSIUM CHLORIDE 20MEQ TABLET SR PO NR (11:00)
[2019-05-06] MEDS: METHYLPREDNISOLONE SOD SUCC 40 MG/ML VIAL IV SCH (11:13)
[2019-05-06] MEDS: LEVOFLOXACIN 500MG PREMIX 100 ML IV SCH (11:14)
[2019-05-06 12:00] VITALS: BP 124/95
[2019-05-06] MEDS ORDERED: LEVO500T2 PO (15:03)
[2019-05-06] MEDS ORDERED: P20 PO (15:03)
[2019-05-06 16:00] VITALS: BP 98/70
[2019-05-06 16:01] VITALS: BP 98/70
[2019-05-06 17:16] LABS: INR 1.8; PROTHROMBIN TIME 18.1 sec (9.6-11.0)
== END 2019-05-06 17:39 | disposition home or self-care (01) | DRG 291 ==
LOC: ER 11:17 → 3WST 12:08 → EDBEDREQ 12:14 → EDBEDREQSVC 12:14 → ENRESERV 20:04 → 6WST 05-03 23:24
PROVIDERS: ADMIT Internal Medicine; ATTEND Internal Medicine
PROC: 5A09457 Assistance with Respiratory Ventilation, 24-96 Consecutive Hours, Continuous Positive Airway Pressure (ICD-10-PCS; principal; 2019-05-02)
DX: I13.0 Hypertensive heart and chronic kidney disease with heart failure and stage 1 through stage 4 chronic kidney disease, or unspecified chronic kidney disease (principal); I50.23 Acute on chronic systolic (congestive) heart failure; J96.90 Respiratory failure, unspecified, unspecified whether with hypoxia or hypercapnia; J18.9 Pneumonia, unspecified organism; J44.1 Chronic obstructive pulmonary disease with (acute) exacerbation; D68.9 Coagulation defect, unspecified; I48.20 Chronic atrial fibrillation, unspecified; J44.0 Chronic obstructive pulmonary disease with (acute) lower respiratory infection; I42.0 Dilated cardiomyopathy; N18.9 Chronic kidney disease, unspecified; E11.22 Type 2 diabetes mellitus with diabetic chronic kidney disease; K57.90 Diverticulosis of intestine, part unspecified, without perforation or abscess without bleeding; I07.1 Rheumatic tricuspid insufficiency; I27.20 Pulmonary hypertension, unspecified; E66.9 Obesity, unspecified; E05.90 Thyrotoxicosis, unspecified without thyrotoxic crisis or storm; E11.65 Type 2 diabetes mellitus with hyperglycemia; E83.42 Hypomagnesemia; E80.6 Other disorders of bilirubin metabolism; D64.9 Anemia, unspecified; E86.0 Dehydration; T45.515A Adverse effect of anticoagulants, initial encounter; Y92.89 Other specified places as the place of occurrence of the external cause; Z79.01 Long term (current) use of anticoagulants; Z82.49 Family history of ischemic heart disease and other diseases of the circulatory system; Z83.3 Family history of diabetes mellitus; Z86.73 Personal history of transient ischemic attack (TIA), and cerebral infarction without residual deficits; Z95.3 Presence of xenogenic heart valve; Z88.8 Allergy status to other drugs, medicaments and biological substances; Z79.899 Other long term (current) drug therapy; Z79.82 Long term (current) use of aspirin; Z79.84 Long term (current) use of oral hypoglycemic drugs; Z68.30 Body mass index [BMI] 30.0-30.9, adult
CPT/HCPCS: 36415; 36600; 71045; 76705; 80048; 80053; 80061; 80162; 80305; 81003; 82375; 82550; 82553; 82805; 82962; 83036; 83735; 83880; 84439; 84443; 84484; 85025; 85027; 86705; 86709; 86803; 87340; 87804; 93005; 93306; 93970; 96365; 96366; 96375; 96376; 97162; 99291; J1160; J1815; J1940; J1956; J2920; J3475; J3490; J7060; J7620

== ENCOUNTER 2019-07-16 17:07 | Inpatient (IN) | payer MEDICARE, MEDICAID ==
[~2019-07-16] VITALS: Ht 167.6 cm; Wt 76.2 kg
[~2019-07-16 17:07] MED LIST changes: +LEVO500T2 PO; -MONT10TA24 MT; +MONT10TA26 MT; +P20 PO
[2019-07-16] MEDS ORDERED: MAGNESIUM 2 G PREMIX 50 ML IV STA (18:41)
[2019-07-16] MEDS ORDERED: ALBUTEROL (0.083%) 2.5MG/3ML NEB HHN STA (18:41)
[2019-07-16] MEDS ORDERED: IPRATROPIUM BROMIDE (0.02%) 0.5MG/2.5ML NEB HHN STA (18:41)
[2019-07-16] MEDS ORDERED: DEXAMETHASONE 4MG/ML 1ML VIAL IV ONE (18:45)
[2019-07-16] MEDS ORDERED: FUROSEMIDE 40MG/4ML VIAL IV ONE (18:45)
[2019-07-16 19:08] LABS: BASOPHILS % 0.2 % (0.0-2.0); EOSINOPHILS % 1.2 % (0.0-5.0); HEMATOCRIT. 42.2 % (36.0-48.0); HEMOGLOBIN. 13.9 g/dL (12.0-16.0); LYMPHOCYTES % 36.4 % (20.0-50.0); MEAN CORPUSCULAR HEMOGLOBIN 28.6 pg (28.0-32.0); MEAN PLATELET VOLUME 7.8 fl (7.4-10.4); NEUTROPHILS % 53.2 % (40.0-76.0); PLATELET 196 x1000/uL (130-400); RED BLOOD CELL COUNT 4.85 mill/uL (4.2-5.4); RED CELL DISTRIBUTION WIDTH 15.5 % (11.6-14.6)
[2019-07-16 19:12] LABS: CHLORIDE 103 mEq/L (98-107)
[2019-07-17 10:00] VITALS: BP 124/89
[2019-07-17] MEDS ORDERED: DOCUSATE SODIUM 100MG CAPSULE PO PRN (10:45)
[2019-07-17] MEDS ORDERED: GUAIFENESIN 200MG/10ML SUGAR FREE UDC PO PRN (10:45)
[2019-07-17] MEDS ORDERED: CLONIDINE 0.1MG TABLET PO PRN (10:45)
[2019-07-17] MEDS ORDERED: ACETAMINOPHEN 325MG TABLET PO PRN (10:45)
[2019-07-17] MEDS ORDERED: MAGNESIUM/ALUMINUM HYDROXIDE/SIMETHICONE 30ML UDC PO PRN (10:45)
[2019-07-17] MEDS ORDERED: NA PHOS,M-B/NA PHOS,DI-BA ENEMA 118ML PR PRN (10:45)
[2019-07-17] MEDS ORDERED: ACETAMINOPHEN 650MG SUPP PR PRN (10:45)
[2019-07-17] MEDS ORDERED: ONDANSETRON HCL 4MG/2ML INJ IV PRN (10:45)
[2019-07-17] MEDS ORDERED: IPRATROPIUM/ALBUTEROL 0.5-3(2.5)MG/3ML NEB NEB PRN (10:45)
[2019-07-17] MEDS ORDERED: LORAZEPAM 0.5MG TABLET PO PRN (10:45)
[2019-07-17] MEDS ORDERED: ACETAMINOPHEN 650MG/20.3ML UDC GT PRN (10:45)
[2019-07-17] MEDS ORDERED: DEXTROSE 50% WATER 50ML SYRINGE IV PRN (11:30)
[2019-07-17 12:00] VITALS: BP 124/89
[2019-07-17] MEDS ORDERED: HYDROCODONE/ACETAMINOPHEN 5/325MG TABLET PO PRN (12:00)
[2019-07-17] MEDS: BLOOD SUGAR DIAGNOSTIC STRIP TEST SCH ×3 (12:30→21:04)
[2019-07-17] MEDS: INSULIN LISPRO 100 UNITS/ML SUBCUT SCH ×3 (12:31→21:00)
[2019-07-17] MEDS: METHYLPREDNISOLONE SOD SUCC 40 MG/ML VIAL IV SCH ×2 (12:32→21:03)
[2019-07-17] MEDS: DILTIAZEM HCL 30MG TABLET PO SCH ×2 (12:33→19:30)
[2019-07-17] MEDS ORDERED: LEVOFLOXACIN 500MG PREMIX 100 ML IV NR (13:00)
[2019-07-17 15:45] LABS: PROTHROMBIN TIME 48.7 sec (9.6-11.0)
[2019-07-17 15:57] LABS: CREATINE KINASE 50 IU/L (26-192)
[2019-07-17 15:58] LABS: CREATINE KINASE MB FRACTION < 1.0 ng/mL (0.5-3.6)
[2019-07-17 16:00] VITALS: BP 120/73
[2019-07-17 16:07] LABS: INR 4.7
[2019-07-17] MEDS ORDERED: WARFARIN SODIUM 5MG TABLET PO SCH (18:00)
[2019-07-17] MEDS: METFORMIN HCL 500MG TABLET PO SCH (18:36)
[2019-07-17] MEDS: FUROSEMIDE 40MG/4ML VIAL IVP SCH (18:36)
[2019-07-17] MEDS: ATORVASTATIN CALCIUM 40MG TABLET PO SCH (18:37)
[2019-07-17 19:03] LABS: CHLORIDE 103 mEq/L (98-107)
[2019-07-17 20:00] VITALS: BP 98/61
[2019-07-17 20:37] LABS: HEMATOCRIT. 45.8 % (36.0-48.0); HEMOGLOBIN. 14.7 g/dL (12.0-16.0); LYMPHOCYTES % 10.5 % (20.0-50.0); MEAN CORPUSCULAR VOLUME 87.1 fL (81.0-99.0); MEAN PLATELET VOLUME 8.1 fl (7.4-10.4); MONOCYTES % 1.7 % (2.0-8.0); NEUTROPHILS % 87.8 % (40.0-76.0); PLATELET 221 x1000/uL (130-400); RED BLOOD CELL COUNT 5.26 mill/uL (4.2-5.4); RED CELL DISTRIBUTION WIDTH 15.7 % (11.6-14.6)
[2019-07-17] MEDS: CARVEDILOL 12.5MG TABLET PO SCH (21:00)
[2019-07-17] MEDS: MONTELUKAST SODIUM 10MG TABLET PO SCH (21:04)
[2019-07-17] MEDS: SACUBITRIL/VALSARTAN 24/26 TAB PO SCH (21:04)
[2019-07-17] MEDS: IPRATROPIUM/ALBUTEROL 0.5-3(2.5)MG/3ML NEB NEB SCH (21:18)
[2019-07-18] VITALS: BP 93/64
[2019-07-18 00:43] LABS: CREATINE KINASE 43 IU/L (26-192)
[2019-07-18 00:44] LABS: CREATINE KINASE MB FRACTION < 1.0 ng/mL (0.5-3.6)
[2019-07-18] MEDS: IPRATROPIUM/ALBUTEROL 0.5-3(2.5)MG/3ML NEB NEB SCH ×4 (03:07→19:40)
[2019-07-18] MEDS: DILTIAZEM HCL 30MG TABLET PO SCH ×4 (03:30→19:30)
[2019-07-18 04:00] VITALS: BP 102/66
[2019-07-18] MEDS: METHYLPREDNISOLONE SOD SUCC 40 MG/ML VIAL IV SCH ×3 (04:06→20:51)
[2019-07-18] MEDS: BLOOD SUGAR DIAGNOSTIC STRIP TEST SCH ×4 (06:47→20:52)
[2019-07-18] MEDS: FUROSEMIDE 40MG/4ML VIAL IVP SCH ×2 (06:47→17:01)
[2019-07-18] MEDS: INSULIN LISPRO 100 UNITS/ML SUBCUT SCH ×4 (07:06→21:00)
[2019-07-18 08:12] VITALS: BP 126/74
[2019-07-18] MEDS: CARVEDILOL 12.5MG TABLET PO SCH ×3 (08:13→20:52)
[2019-07-18] MEDS: ASPIRIN 81MG EC TABLET PO SCH (08:23)
[2019-07-18] MEDS: PANTOPRAZOLE 40MG DR TABLET PO SCH (08:23)
[2019-07-18] MEDS: METFORMIN HCL 500MG TABLET PO SCH ×2 (08:23→17:41)
[2019-07-18] MEDS: ISOSORBIDE MONONITRATE 30MG TABLET SR 24HR PO SCH (08:23)
[2019-07-18] MEDS: SACUBITRIL/VALSARTAN 24/26 TAB PO SCH ×3 (08:27→20:52)
[2019-07-18] MEDS: LEVOFLOXACIN 250MG PREMIX 50 ML IV SCH (11:53)
[2019-07-18 12:00] VITALS: BP 128/68
[2019-07-18 15:27] LABS: BASOPHILS % 0.1 % (0.0-2.0); HEMATOCRIT. 47.3 % (36.0-48.0); HEMOGLOBIN. 15.4 g/dL (12.0-16.0); LYMPHOCYTES % 7.8 % (20.0-50.0); MEAN CORPUSCULAR HEMOGLOBIN 28.3 pg (28.0-32.0); MEAN CORPUSCULAR VOLUME 86.8 fL (81.0-99.0); MEAN PLATELET VOLUME 8.3 fl (7.4-10.4); NEUTROPHILS % 89.1 % (40.0-76.0); PLATELET 260 x1000/uL (130-400); RED BLOOD CELL COUNT 5.45 mill/uL (4.2-5.4); RED CELL DISTRIBUTION WIDTH 15.9 % (11.6-14.6)
[2019-07-18 15:29] LABS: CHLORIDE 103 mEq/L (98-107)
[2019-07-18 15:40] LABS: LDL CHOLESTEROL 93 mg/dL (5-100)
[2019-07-18 15:41] LABS: HDL CHOLESTEROL 65 mg/dL (40-59)
[2019-07-18 15:43] LABS: T4 FREE 1.42 ng/dL (0.76-1.46)
[2019-07-18 15:47] LABS: INR 3.2; PROTHROMBIN TIME 34.1 sec (9.6-11.0)
[2019-07-18 16:00] VITALS: BP 93/60
[2019-07-18] MEDS: ATORVASTATIN CALCIUM 40MG TABLET PO SCH (17:01)
[2019-07-18] MEDS ORDERED: WARFARIN SODIUM 7.5MG TABLET PO ONE (18:00)
[2019-07-18 20:00] VITALS: BP 96/76
[2019-07-18] MEDS: MONTELUKAST SODIUM 10MG TABLET PO SCH (20:52)
[2019-07-19] VITALS: BP 96/61
[2019-07-19] MEDS: IPRATROPIUM/ALBUTEROL 0.5-3(2.5)MG/3ML NEB NEB SCH ×3 (02:12→14:46)
[2019-07-19] MEDS: DILTIAZEM HCL 30MG TABLET PO SCH ×2 (03:56→11:30)
[2019-07-19] MEDS: METHYLPREDNISOLONE SOD SUCC 40 MG/ML VIAL IV SCH (03:56)
[2019-07-19 04:00] VITALS: BP 122/71
[2019-07-19 05:02] LABS: HEMATOCRIT. 48.3 % (36.0-48.0); HEMOGLOBIN. 15.6 g/dL (12.0-16.0); LYMPHOCYTES % 8.7 % (20.0-50.0); MEAN CORPUSCULAR HEMOGLOBIN 28.4 pg (28.0-32.0); MEAN CORPUSCULAR VOLUME 87.8 fL (81.0-99.0); MEAN PLATELET VOLUME 8.3 fl (7.4-10.4); MONOCYTES % 2.4 % (2.0-8.0); NEUTROPHILS % 88.9 % (40.0-76.0); PLATELET 230 x1000/uL (130-400); RED CELL DISTRIBUTION WIDTH 16.1 % (11.6-14.6)
[2019-07-19 05:15] LABS: INR 2.9; PROTHROMBIN TIME 30.4 sec (9.6-11.0)
[2019-07-19] MEDS: FUROSEMIDE 40MG/4ML VIAL IVP SCH (06:42)
[2019-07-19] MEDS: BLOOD SUGAR DIAGNOSTIC STRIP TEST SCH ×2 (06:42→11:45)
[2019-07-19] MEDS: INSULIN LISPRO 100 UNITS/ML SUBCUT SCH ×2 (08:10→12:16)
[2019-07-19 08:24] VITALS: BP 107/81
[2019-07-19] MEDS: SACUBITRIL/VALSARTAN 24/26 TAB PO SCH (08:33)
[2019-07-19] MEDS: ISOSORBIDE MONONITRATE 30MG TABLET SR 24HR PO SCH (08:33)
[2019-07-19] MEDS: ASPIRIN 81MG EC TABLET PO SCH (08:33)
[2019-07-19] MEDS: PANTOPRAZOLE 40MG DR TABLET PO SCH (08:33)
[2019-07-19] MEDS: METFORMIN HCL 500MG TABLET PO SCH (08:33)
[2019-07-19] MEDS: CARVEDILOL 12.5MG TABLET PO SCH (08:33)
[2019-07-19] MEDS: LEVOFLOXACIN 250MG PREMIX 50 ML IV SCH (11:07)
[2019-07-19 11:38] VITALS: BP 90/62
[2019-07-19 13:08] VITALS: BP 90/62
[2019-07-19 13:15] VITALS: BP 131/81
[2019-07-19] MEDS ORDERED: WARFARIN SODIUM 7.5MG TABLET PO NR (15:00)
[2019-07-20] MEDS ORDERED: METHYLPREDNISOLONE SOD SUCC 40 MG/ML VIAL IV SCH (09:00)
== END 2019-07-19 15:10 | disposition home or self-care (01) | DRG 291 ==
LOC: ER 17:07 → 7WST 22:30 → EDBEDREQ 22:42 → EDBEDREQTM 22:42 → ENRESERV 07-17 07:43 → 7WST 07-18 06:15
PROVIDERS: ADMIT Internal Medicine; ATTEND Internal Medicine
DX: I13.0 Hypertensive heart and chronic kidney disease with heart failure and stage 1 through stage 4 chronic kidney disease, or unspecified chronic kidney disease (principal); I50.23 Acute on chronic systolic (congestive) heart failure; J96.90 Respiratory failure, unspecified, unspecified whether with hypoxia or hypercapnia; I48.20 Chronic atrial fibrillation, unspecified; J44.1 Chronic obstructive pulmonary disease with (acute) exacerbation; D68.9 Coagulation defect, unspecified; D64.9 Anemia, unspecified; E05.90 Thyrotoxicosis, unspecified without thyrotoxic crisis or storm; E11.22 Type 2 diabetes mellitus with diabetic chronic kidney disease; E11.65 Type 2 diabetes mellitus with hyperglycemia; K57.90 Diverticulosis of intestine, part unspecified, without perforation or abscess without bleeding; E83.42 Hypomagnesemia; I27.20 Pulmonary hypertension, unspecified; I07.1 Rheumatic tricuspid insufficiency; I42.0 Dilated cardiomyopathy; K31.7 Polyp of stomach and duodenum; K21.9 Gastro-esophageal reflux disease without esophagitis; N18.9 Chronic kidney disease, unspecified; Z79.01 Long term (current) use of anticoagulants; Z95.3 Presence of xenogenic heart valve; Z99.81 Dependence on supplemental oxygen; Z79.84 Long term (current) use of oral hypoglycemic drugs; Z88.6 Allergy status to analgesic agent; Z79.2 Long term (current) use of antibiotics; Z79.82 Long term (current) use of aspirin; Z79.899 Other long term (current) drug therapy
CPT/HCPCS: 36415; 71045; 74176; 80048; 80053; 80061; 80162; 82105; 82270; 82378; 82550; 82553; 82962; 83880; 84439; 84443; 84484; 85025; 87804; 93005; 93970; 94640; 94644; 97116; 97162; 99285; J1100; J1940; J1956; J2920; J3475

== ENCOUNTER 2019-08-03 09:10 | Emergency (ER) | payer MEDICARE, MEDICAID ==
[~2019-08-03] VITALS: Ht 167.6 cm; Wt 77.0 kg
[2019-08-03] MEDS ORDERED: FLUORESCEIN SODIUM 1MG/STRIP LEFTEYE ONE (10:00)
[2019-08-03 10:15] VITALS: BP 118/84
== END 2019-08-03 10:17 | disposition home or self-care (01) ==
LOC: ER 09:15
DX: H11.32 Conjunctival hemorrhage, left eye (principal); I11.0 Hypertensive heart disease with heart failure; I50.9 Heart failure, unspecified; E11.9 Type 2 diabetes mellitus without complications; J44.9 Chronic obstructive pulmonary disease, unspecified; Z98.890 Other specified postprocedural states; Z79.84 Long term (current) use of oral hypoglycemic drugs; Z88.5 Allergy status to narcotic agent
CPT/HCPCS: 99283

== ENCOUNTER 2019-11-20 21:40 | Inpatient (IN) | payer MEDICARE, MEDICAID ==
[~2019-11-20] VITALS: Ht 167.6 cm; Wt 75.3 kg
[2019-11-20 21:40] VITALS: BP 165/114
[~2019-11-20 21:40] MED LIST changes: +POTASSIUM CHLORIDE 20MEQ TABLET SR PO SCH
[2019-11-20] MEDS ORDERED: DEXTROSE 50% WATER 50ML SYRINGE IV PRN (23:15)
[2019-11-20] MEDS ORDERED: IPRATROPIUM/ALBUTEROL 0.5-3(2.5)MG/3ML NEB HHN PRN (23:15)
[2019-11-20] MEDS ORDERED: ACETAMINOPHEN 325MG TABLET PO PRN (23:15)
[2019-11-20] MEDS ORDERED: CLONIDINE 0.1MG TABLET PO PRN (23:15)
[2019-11-21 00:42] VITALS: BP 154/100
[2019-11-21 00:58] LABS: INR 3.1; PROTHROMBIN TIME 31.1 sec (9.6-11.0)
[2019-11-21] MEDS: POTASSIUM CHLORIDE 20MEQ TABLET SR PO SCH (01:32)
[2019-11-21] MEDS: TEMAZEPAM 15MG CAPSULE PO PRN ×2 (01:44→21:22)
[2019-11-21] MEDS ORDERED: METOPROLOL TARTRATE 50MG TABLET PO SCH (02:00)
[2019-11-21 04:00] VITALS: BP 133/83
[2019-11-21] MEDS: PANTOPRAZOLE 40MG DR TABLET PO SCH (06:28)
[2019-11-21] MEDS: BLOOD SUGAR DIAGNOSTIC STRIP TEST SCH ×4 (06:28→21:22)
[2019-11-21 06:45] LABS: INR 2.8; PROTHROMBIN TIME 28.2 sec (9.6-11.0)
[2019-11-21 06:51] LABS: HEMOGLOBIN 11.9 g/dL (12.0-16.0); MEAN CORPUSCULAR HEMOGLOBIN 29.9 pg (28.0-32.0); MEAN CORPUSCULAR VOLUME 90.6 fL (81.0-99.0); PLATELET 156 x1000/uL (130-400); RED BLOOD CELL COUNT 3.98 mill/uL (4.2-5.4); RED CELL DISTRIBUTION WIDTH 16.8 % (11.6-14.6)
[2019-11-21 06:53] LABS: CHLORIDE 110 mEq/L (98-107)
[2019-11-21 07:11] LABS: CREATINE KINASE 43 IU/L (26-192); LDL CHOLESTEROL 43 mg/dL (5-100)
[2019-11-21 07:12] LABS: CREATINE KINASE MB FRACTION < 1.0 ng/mL (0.5-3.6)
[2019-11-21 07:13] LABS: HDL CHOLESTEROL 44 mg/dL (40-59); T4 FREE 1.45 ng/dL (0.76-1.46)
[2019-11-21] MEDS: INSULIN LISPRO 100 UNITS/ML SUBCUT SCH ×4 (07:37→21:00)
[2019-11-21 08:00] VITALS: BP 131/83
[2019-11-21] MEDS: LISINOPRIL 40MG TABLET PO SCH (08:17)
[2019-11-21] MEDS: FUROSEMIDE 40MG/4ML VIAL IVP SCH (08:17)
[2019-11-21 12:00] VITALS: BP 114/70
[2019-11-21] MEDS: CARVEDILOL 12.5MG TABLET PO SCH ×2 (12:29→21:22)
[2019-11-21] MEDS: NITROGLYCERIN OINT 1GM/INCH UDPKT TD SCH ×2 (13:00→21:23)
[2019-11-21 16:00] VITALS: BP 120/66
[2019-11-21 16:15] LABS: CREATINE KINASE 47 IU/L (26-192)
[2019-11-21] MEDS ORDERED: WARFARIN SODIUM 3MG TABLET PO NR (18:00)
[2019-11-21 20:00] VITALS: BP 113/66
[2019-11-21] MEDS: ATORVASTATIN CALCIUM 40MG TABLET PO SCH (21:22)
[2019-11-21 23:27] LABS: CREATINE KINASE 41 IU/L (26-192)
[2019-11-21 23:28] LABS: CREATINE KINASE MB FRACTION < 1.0 ng/mL (0.5-3.6)
[2019-11-22] VITALS: BP 104/64
[2019-11-22 04:00] VITALS: BP 107/59
[2019-11-22 05:46] LABS: INR 2.3
[2019-11-22 05:48] LABS: CHLORIDE 110 mEq/L (98-107)
[2019-11-22 06:20] LABS: EOSINOPHILS % 3.1 % (0.0-5.0); HEMATOCRIT. 34.9 % (36.0-48.0); HEMOGLOBIN. 11.6 g/dL (12.0-16.0); LYMPHOCYTES % 25.7 % (20.0-50.0); MEAN CORPUSCULAR HEMOGLOBIN 29.9 pg (28.0-32.0); MONOCYTES % 7.5 % (2.0-8.0); NEUTROPHILS % 62.7 % (40.0-76.0); PLATELET 160 x1000/uL (130-400); RED BLOOD CELL COUNT 3.88 mill/uL (4.2-5.4)
[2019-11-22] MEDS: PANTOPRAZOLE 40MG DR TABLET PO SCH (06:22)
[2019-11-22] MEDS: BLOOD SUGAR DIAGNOSTIC STRIP TEST SCH ×4 (06:22→20:36)
[2019-11-22] MEDS: NITROGLYCERIN OINT 1GM/INCH UDPKT TD SCH (06:22)
[2019-11-22] MEDS: INSULIN LISPRO 100 UNITS/ML SUBCUT SCH ×4 (06:44→20:36)
[2019-11-22 07:42] VITALS: BP 134/95
[2019-11-22] MEDS: FUROSEMIDE 40MG/4ML VIAL IVP SCH ×2 (08:02→17:17)
[2019-11-22] MEDS: LISINOPRIL 40MG TABLET PO SCH (08:32)
[2019-11-22] MEDS: CARVEDILOL 12.5MG TABLET PO SCH ×2 (08:33→20:37)
[2019-11-22] MEDS: POTASSIUM CHLORIDE 20MEQ TABLET SR PO SCH (08:41)
[2019-11-22] MEDS: BUDESONIDE 0.5MG/2ML NEB HHN SCH ×2 (09:04→21:36)
[2019-11-22] MEDS: IPRATROPIUM/ALBUTEROL 0.5-3(2.5)MG/3ML NEB HHN SCH ×3 (09:04→21:29)
[2019-11-22 12:00] VITALS: BP 108/78
[2019-11-22 16:00] VITALS: BP 111/73
[2019-11-22] MEDS ORDERED: WARFARIN SODIUM 7.5MG TABLET PO NR (18:00)
[2019-11-22 20:00] VITALS: BP 100/76
[2019-11-22 20:31] LABS: CLARITY URINE CLEAR (CLEAR); COLOR URINE YELLOW (YELLOW); KETONES URINE NEGATIVE (NEGATIVE); LEUKOCYTE ESTERASE URINE NEGATIVE (NEGATIVE); NITRITE URINE NEGATIVE (NEGATIVE); OCCULT BLOOD URINE NEGATIVE (NEGATIVE); PROTEIN URINE NEGATIVE (NEGATIVE)
[2019-11-22] MEDS: ATORVASTATIN CALCIUM 40MG TABLET PO SCH (20:37)
[2019-11-22] MEDS ORDERED: NITROGLYCERIN OINT 1GM/INCH UDPKT TD SCH (21:00)
[2019-11-23] VITALS: BP 107/58
[2019-11-23] MEDS: IPRATROPIUM/ALBUTEROL 0.5-3(2.5)MG/3ML NEB HHN SCH ×4 (02:53→21:36)
[2019-11-23 04:00] VITALS: BP 137/92
[2019-11-23] MEDS: BLOOD SUGAR DIAGNOSTIC STRIP TEST SCH ×4 (06:16→21:00)
[2019-11-23] MEDS: FUROSEMIDE 40MG/4ML VIAL IVP SCH ×2 (06:16→18:17)
[2019-11-23 07:25] LABS: BASOPHILS % 0.9 % (0.0-2.0); EOSINOPHILS % 2.8 % (0.0-5.0); HEMATOCRIT. 36.2 % (36.0-48.0); HEMOGLOBIN. 11.8 g/dL (12.0-16.0); LYMPHOCYTES % 27.5 % (20.0-50.0); MEAN CORPUSCULAR HEMOGLOBIN 29.5 pg (28.0-32.0); MEAN CORPUSCULAR VOLUME 90.8 fL (81.0-99.0); MEAN PLATELET VOLUME 8.3 fl (7.4-10.4); MONOCYTES % 7.6 % (2.0-8.0); NEUTROPHILS % 61.2 % (40.0-76.0); PLATELET 168 x1000/uL (130-400); RED BLOOD CELL COUNT 3.99 mill/uL (4.2-5.4); RED CELL DISTRIBUTION WIDTH 16.6 % (11.6-14.6)
[2019-11-23 07:32] LABS: PROTHROMBIN TIME 20.4 sec (9.6-11.0)
[2019-11-23] MEDS: INSULIN LISPRO 100 UNITS/ML SUBCUT SCH ×4 (07:40→21:00)
[2019-11-23 07:49] LABS: CHLORIDE 107 mEq/L (98-107)
[2019-11-23 08:00] VITALS: BP 111/80
[2019-11-23] MEDS: CARVEDILOL 12.5MG TABLET PO SCH ×2 (08:36→22:32)
[2019-11-23] MEDS: LISINOPRIL 40MG TABLET PO SCH (08:36)
[2019-11-23] MEDS: FAMOTIDINE 20MG TABLET PO SCH ×2 (08:36→18:20)
[2019-11-23] MEDS: POTASSIUM CHLORIDE 20MEQ TABLET SR PO SCH (08:37)
[2019-11-23] MEDS ORDERED: DOCUSATE SODIUM 100MG CAPSULE PO PRN (09:15)
[2019-11-23] MEDS: BUDESONIDE 0.5MG/2ML NEB HHN SCH (09:27)
[2019-11-23] MEDS: DILTIAZEM HCL 30MG TABLET PO SCH ×2 (11:56→18:20)
[2019-11-23 12:00] VITALS: BP 109/77
[2019-11-23 16:00] VITALS: BP 110/73
[2019-11-23] MEDS ORDERED: DIGOXIN 125MCG TABLET PO SCH (18:00)
[2019-11-23] MEDS ORDERED: WARFARIN SODIUM 4MG TABLET PO NR (18:00)
[2019-11-23 20:35] VITALS: BP 109/78
[2019-11-23] MEDS: ATORVASTATIN CALCIUM 40MG TABLET PO SCH (22:36)
[2019-11-24] MEDS: DILTIAZEM HCL 30MG TABLET PO SCH ×3 (00:10→13:29)
[2019-11-24 00:32] VITALS: BP 142/82
[2019-11-24] MEDS: IPRATROPIUM/ALBUTEROL 0.5-3(2.5)MG/3ML NEB HHN SCH ×3 (02:26→09:55)
[2019-11-24 04:00] VITALS: BP 106/80
[2019-11-24 07:15] LABS: INR 1.8; PROTHROMBIN TIME 18.7 sec (9.6-11.0)
[2019-11-24 07:23] LABS: HEMATOCRIT. 36.1 % (36.0-48.0); HEMOGLOBIN. 11.7 g/dL (12.0-16.0); LYMPHOCYTES % 27.2 % (20.0-50.0); MEAN CORPUSCULAR HEMOGLOBIN 29.3 pg (28.0-32.0); MEAN CORPUSCULAR VOLUME 90.2 fL (81.0-99.0); MEAN PLATELET VOLUME 7.8 fl (7.4-10.4); MONOCYTES % 8.3 % (2.0-8.0); NEUTROPHILS % 60.5 % (40.0-76.0); PLATELET 184 x1000/uL (130-400); RED CELL DISTRIBUTION WIDTH 16.5 % (11.6-14.6)
[2019-11-24] MEDS: INSULIN LISPRO 100 UNITS/ML SUBCUT SCH ×2 (07:26→12:50)
[2019-11-24] MEDS: BLOOD SUGAR DIAGNOSTIC STRIP TEST SCH ×2 (07:26→12:20)
[2019-11-24 08:00] VITALS: BP 120/78
[2019-11-24 08:29] LABS: CHLORIDE 107 mEq/L (98-107)
[2019-11-24] MEDS ORDERED: FUROSEMIDE 40MG TABLET PO SCH (09:00)
[2019-11-24] MEDS: FAMOTIDINE 20MG TABLET PO SCH (09:05)
[2019-11-24] MEDS: LISINOPRIL 40MG TABLET PO SCH (09:05)
[2019-11-24] MEDS: CARVEDILOL 12.5MG TABLET PO SCH (09:06)
[2019-11-24] MEDS: POTASSIUM CHLORIDE 20MEQ TABLET SR PO SCH (09:06)
[2019-11-24] MEDS: BUDESONIDE 0.5MG/2ML NEB HHN SCH (09:55)
[2019-11-24 12:00] VITALS: BP 127/94
[2019-11-24 13:34] VITALS: BP 127/94
[2019-11-24] MEDS ORDERED: WARFARIN SODIUM 4MG TABLET PO NR (18:00)
== END 2019-11-24 15:06 | disposition home or self-care (01) | DRG 291 ==
LOC: 6WST 21:40
PROVIDERS: ADMIT Internal Medicine; ATTEND Internal Medicine
DX: I13.0 Hypertensive heart and chronic kidney disease with heart failure and stage 1 through stage 4 chronic kidney disease, or unspecified chronic kidney disease (principal); I50.23 Acute on chronic systolic (congestive) heart failure; J44.1 Chronic obstructive pulmonary disease with (acute) exacerbation; I42.8 Other cardiomyopathies; I48.91 Unspecified atrial fibrillation; N18.9 Chronic kidney disease, unspecified; K57.90 Diverticulosis of intestine, part unspecified, without perforation or abscess without bleeding; E87.6 Hypokalemia; I34.0 Nonrheumatic mitral (valve) insufficiency; I36.1 Nonrheumatic tricuspid (valve) insufficiency; I27.20 Pulmonary hypertension, unspecified; K22.8 Other specified diseases of esophagus; K31.7 Polyp of stomach and duodenum; R06.00 Dyspnea, unspecified; E78.5 Hyperlipidemia, unspecified; R06.03 Acute respiratory distress; E11.22 Type 2 diabetes mellitus with diabetic chronic kidney disease; D64.9 Anemia, unspecified; Z88.5 Allergy status to narcotic agent; Z79.01 Long term (current) use of anticoagulants
CPT/HCPCS: 36415; 71045; 71046; 80048; 80053; 80061; 81003; 82550; 82553; 82962; 83036; 84439; 84443; 84484; 85025; 85027; 93005; 93306; 94640; J1815; J1940; J7626

== ENCOUNTER 2020-08-31 15:18 | Inpatient (IN) | payer MEDICARE, MEDICAID ==
[~2020-08-31] VITALS: Ht 165.1 cm; Wt 76.7 kg
[~2020-08-31 15:18] MED LIST changes: -ISOS30TA6 PO; +ISOS30TA91 PO; -LEVO500T2 PO; -METF-815 MT; +METF-873 MT; -MONT10TA26 MT; +MONT10TA32 MT; -P20 PO; -POTASSIUM CHLORIDE 20MEQ TABLET SR PO SCH; +TAP5 PO
[2020-08-31] MEDS ORDERED: NON FORMULARY PATIENT HOME MED XX SCH (16:30)
[2020-08-31] MEDS ORDERED: ACETAMINOPHEN 650MG SUPP PR PRN (16:30)
[2020-08-31] MEDS ORDERED: MAGNESIUM/ALUMINUM HYDROXIDE/SIMETHICONE 30ML UDC PO PRN (16:30)
[2020-08-31] MEDS ORDERED: CLONIDINE 0.1MG TABLET PO PRN (16:30)
[2020-08-31] MEDS ORDERED: NA PHOS,M-B/NA PHOS,DI-BA ENEMA 118ML PR PRN (16:30)
[2020-08-31] MEDS ORDERED: GUAIFENESIN 200MG/10ML SUGAR FREE UDC PO PRN (16:30)
[2020-08-31] MEDS ORDERED: ONDANSETRON HCL 4MG/2ML INJ IV PRN (16:30)
[2020-08-31] MEDS ORDERED: LORAZEPAM 0.5MG TABLET PO PRN (16:30)
[2020-08-31] MEDS ORDERED: IPRATROPIUM/ALBUTEROL 0.5-3(2.5)MG/3ML NEB NEB PRN (16:30)
[2020-08-31] MEDS ORDERED: DEXTROSE 50% WATER 50ML SYRINGE IV PRN (16:30)
[2020-08-31] MEDS ORDERED: DIPHENHYDRAMINE 50MG/ML VIAL IV PRN (16:30)
[2020-08-31] MEDS ORDERED: ASPIRIN 325MG EC TABLET PO ONE (16:45)
[2020-08-31] MEDS: IPRATROPIUM/ALBUTEROL 0.5-3(2.5)MG/3ML NEB NEB SCH ×2 (16:48→20:00)
[2020-08-31 16:54] LABS: BG BASE EXCESS -3.7 mmol/L (-2.0-2.0); BG CARBOXYHEMOGLOBIN 0.3 % (0.5-1.5); BG DEOXYHEMOGLOBIN 6.9 % (0.0-5.0); BG FRACTION INSPIRED OXYGEN 21; BG HCO3 ACT 20.5 mmol/L (22.0-26.0); BG OXYGEN SATURATION 93.1 % (92.0-98.5); BG OXYHEMOGLOBIN 92.8 % (94.0-97.0); BG PCO2 33.9 mmHg (35.0-45.0); BG PH 7.399 (7.350-7.450); BG PO2 67.9 mmHg (75.0-100.0); BG SAMPLE SITE RIGHT BRACHIAL; BG TOTAL HEMOGLOBIN 11.4 g/dL (12.0-18.0); BG VENT MODE ROOM AIR
[2020-08-31] MEDS: METHYLPREDNISOLONE SOD SUCC 125 MG/2 ML VIAL IV SCH (17:04)
[2020-08-31] MEDS: FUROSEMIDE 40MG/4ML VIAL IVP SCH (17:04)
[2020-08-31] MEDS: FAMOTIDINE 20MG/2ML VIAL IV SCH (17:04)
[2020-08-31 17:10] LABS: CHLORIDE 111 mEq/L (98-107)
[2020-08-31 17:13] LABS: BASOPHILS % 1.2 % (0.0-2.0); EOSINOPHILS % 0.5 % (0.0-5.0); HEMATOCRIT. 32.6 % (36.0-48.0); HEMOGLOBIN. 10.5 g/dL (12.0-16.0); LYMPHOCYTES % 25.7 % (20.0-50.0); MEAN CORPUSCULAR VOLUME 89.9 fL (81.0-99.0); MONOCYTES % 8.3 % (2.0-8.0); NEUTROPHILS % 64.3 % (40.0-76.0); PLATELET 187 x1000/uL (130-400); RED BLOOD CELL COUNT 3.63 mill/uL (4.2-5.4); RED CELL DISTRIBUTION WIDTH 18.3 % (11.6-14.6)
[2020-08-31] MEDS: BLOOD SUGAR DIAGNOSTIC STRIP TEST SCH ×2 (17:14→21:00)
[2020-08-31 17:21] LABS: PARTIAL THROMBOPLASTIN TIME 59.8 sec (23.4-31.0); PROTHROMBIN TIME 88.1 sec (9.6-11.0)
[2020-08-31 17:30] LABS: DIGOXIN 0.2 ng/mL (0.9-2.0)
[2020-08-31 17:36] LABS: INR 9.9
[2020-08-31] MEDS ORDERED: SODIUM POLYSTYRENE SULFONATE 15 G/60 ML BOT PO NR (17:45)
[2020-08-31] MEDS ORDERED: LEVOFLOXACIN 500MG PREMIX 100 ML IV NR ×2 (18:00)
[2020-08-31] MEDS: INSULIN LISPRO 100 UNITS/ML SUBCUT SCH ×2 (18:04→23:44)
[2020-08-31] MEDS ORDERED: PHYTONADIONE 10 MG/10 ML ORALSYR PO ONE (18:45)
[2020-08-31] MEDS ORDERED: SODIUM BICARBONATE 8.4% 1 MEQ/ML 50ML SYR IV ONE (18:45)
[2020-08-31] MEDS ORDERED: ALBUTEROL (0.083%) 2.5MG/3ML NEB HHN ONE (18:45)
[2020-08-31] MEDS ORDERED: SODIUM POLYSTYRENE SULFONATE 15 G/60 ML BOT PO ONE (18:45)
[2020-08-31 22:20] LABS: CREATINE KINASE 36 IU/L (26-192)
[2020-08-31 22:21] LABS: CREATINE KINASE MB FRACTION < 1.0 ng/mL (0.5-3.6)
[2020-09-01] MEDS: SACUBITRIL/VALSARTAN 24/26 TAB PO SCH ×3 (00:04→22:02)
[2020-09-01] MEDS: CARVEDILOL 3.125 MG TABLET PO SCH ×2 (00:29→09:53)
[2020-09-01] MEDS: IPRATROPIUM/ALBUTEROL 0.5-3(2.5)MG/3ML NEB NEB SCH ×4 (03:00→20:36)
[2020-09-01] MEDS: BLOOD SUGAR DIAGNOSTIC STRIP TEST SCH ×4 (07:10→21:20)
[2020-09-01 09:00] VITALS: BP 118/76
[2020-09-01] MEDS: FUROSEMIDE 40MG/4ML VIAL IVP SCH ×2 (09:52→16:43)
[2020-09-01] MEDS: METHYLPREDNISOLONE SOD SUCC 125 MG/2 ML VIAL IV SCH ×3 (09:53→23:45)
[2020-09-01] MEDS: FAMOTIDINE 20MG/2ML VIAL IV SCH (09:53)
[2020-09-01] MEDS: INSULIN LISPRO 100 UNITS/ML SUBCUT SCH ×4 (09:59→22:07)
[2020-09-01] MEDS ORDERED: DILTIAZEM HCL 60MG TABLET PO SCH (10:00)
[2020-09-01 11:29] LABS: BASOPHILS % 0.2 % (0.0-2.0); LYMPHOCYTES % 15.7 % (20.0-50.0); MEAN CORPUSCULAR HEMOGLOBIN 28.8 pg (28.0-32.0); MEAN CORPUSCULAR VOLUME 88.7 fL (81.0-99.0); MEAN PLATELET VOLUME 8.1 fl (7.4-10.4); MONOCYTES % 3.6 % (2.0-8.0); NEUTROPHILS % 80.5 % (40.0-76.0); PLATELET 184 x1000/uL (130-400); RED BLOOD CELL COUNT 3.83 mill/uL (4.2-5.4)
[2020-09-01 11:35] LABS: CHLORIDE 110 mEq/L (98-107)
[2020-09-01 11:36] LABS: INR 3.9; PROTHROMBIN TIME 37.8 sec (9.6-11.0)
[2020-09-01 11:43] LABS: LDL CHOLESTEROL 40 mg/dL (5-100)
[2020-09-01 11:44] LABS: CREATINE KINASE 33 IU/L (26-192); CREATINE KINASE MB FRACTION < 1.0 ng/mL (0.5-3.6); HDL CHOLESTEROL 58 mg/dL (40-59)
[2020-09-01 11:45] LABS: T4 FREE 1.18 ng/dL (0.76-1.46)
[2020-09-01 12:00] VITALS: BP 118/61
[2020-09-01] MEDS: DILTIAZEM HCL 90MG TABLET PO SCH ×3 (12:51→23:50)
[2020-09-01] MEDS ORDERED: ESCI-7 MT (14:45)
[2020-09-01] MEDS ORDERED: LISI20TA31 MT (14:45)
[2020-09-01] MEDS ORDERED: SPIR25TA6 MT (14:51)
[2020-09-01] MEDS: ACETAMINOPHEN 325MG TABLET PO PRN ×2 (15:16→22:08)
[2020-09-01 16:00] VITALS: BP 100/73
[2020-09-01] MEDS ORDERED: DIGOXIN 500MCG/2ML AMP IV SCH (17:15)
[2020-09-01] MEDS ORDERED: LEVOFLOXACIN 250MG PREMIX 50 ML IV SCH ×2 (17:30→18:00)
[2020-09-01 20:00] VITALS: BP 118/67
[2020-09-01] MEDS: ATORVASTATIN CALCIUM 20MG TABLET PO SCH (22:03)
[2020-09-01] MEDS: CARVEDILOL 6.25 MG TABLET PO SCH (22:04)
[2020-09-02] VITALS: BP 99/73
[2020-09-02] MEDS: IPRATROPIUM/ALBUTEROL 0.5-3(2.5)MG/3ML NEB NEB SCH ×4 (02:43→21:46)
[2020-09-02 04:00] VITALS: BP 116/87
[2020-09-02] MEDS: DILTIAZEM HCL 90MG TABLET PO SCH ×4 (05:28→23:26)
[2020-09-02 06:44] LABS: BASOPHILS % 0.1 % (0.0-2.0); HEMATOCRIT. 33.7 % (36.0-48.0); HEMOGLOBIN. 10.8 g/dL (12.0-16.0); LYMPHOCYTES % 10.1 % (20.0-50.0); MEAN CORPUSCULAR HEMOGLOBIN 28.1 pg (28.0-32.0); MEAN CORPUSCULAR VOLUME 88.1 fL (81.0-99.0); MONOCYTES % 1.6 % (2.0-8.0); NEUTROPHILS % 88.2 % (40.0-76.0); PLATELET 203 x1000/uL (130-400); RED BLOOD CELL COUNT 3.83 mill/uL (4.2-5.4); RED CELL DISTRIBUTION WIDTH 18.4 % (11.6-14.6)
[2020-09-02 06:48] LABS: INR 1.6; PROTHROMBIN TIME 16.6 sec (9.6-11.0)
[2020-09-02] MEDS: INSULIN LISPRO 100 UNITS/ML SUBCUT SCH ×4 (07:17→20:23)
[2020-09-02] MEDS: BLOOD SUGAR DIAGNOSTIC STRIP TEST SCH ×4 (07:46→20:25)
[2020-09-02 08:25] VITALS: BP 116/82
[2020-09-02] MEDS: DOCUSATE SODIUM 100MG CAPSULE PO PRN ×2 (08:27→18:53)
[2020-09-02] MEDS: FAMOTIDINE 20MG TABLET PO SCH (08:28)
[2020-09-02] MEDS: CARVEDILOL 6.25 MG TABLET PO SCH (08:28)
[2020-09-02] MEDS: FUROSEMIDE 40MG/4ML VIAL IVP SCH ×2 (08:29→18:54)
[2020-09-02] MEDS: ACETAMINOPHEN 325MG TABLET PO PRN (08:29)
[2020-09-02] MEDS: METHYLPREDNISOLONE SOD SUCC 125 MG/2 ML VIAL IV SCH ×3 (08:30→23:26)
[2020-09-02 12:11] VITALS: BP 117/89
[2020-09-02] MEDS: SACUBITRIL/VALSARTAN 24/26 TAB PO SCH ×2 (12:47→20:25)
[2020-09-02 16:09] VITALS: BP 120/79
[2020-09-02] MEDS ORDERED: WARFARIN SODIUM 5MG TABLET PO NR (18:00)
[2020-09-02] MEDS ORDERED: DIGOXIN 500MCG/2ML AMP IV SCH (18:00)
[2020-09-02] MEDS: LEVOFLOXACIN 250MG TABLET PO SCH (19:12)
[2020-09-02 20:00] VITALS: BP 111/81
[2020-09-02] MEDS: ATORVASTATIN CALCIUM 20MG TABLET PO SCH (20:23)
[2020-09-02] MEDS ORDERED: CARVEDILOL 12.5MG TABLET PO SCH (21:00)
[2020-09-03] VITALS: BP 114/78
[2020-09-03] MEDS: IPRATROPIUM/ALBUTEROL 0.5-3(2.5)MG/3ML NEB NEB SCH ×4 (02:19→21:10)
[2020-09-03] MEDS: ACETAMINOPHEN 325MG TABLET PO PRN (02:31)
[2020-09-03 04:00] VITALS: BP 110/87
[2020-09-03] MEDS: DILTIAZEM HCL 90MG TABLET PO SCH ×3 (05:29→19:30)
[2020-09-03] MEDS: INSULIN LISPRO 100 UNITS/ML SUBCUT SCH ×4 (06:23→20:36)
[2020-09-03 06:40] LABS: INR 1.4; PROTHROMBIN TIME 14.9 sec (9.6-11.0)
[2020-09-03 06:56] LABS: HEMATOCRIT. 32.4 % (36.0-48.0); HEMOGLOBIN. 10.7 g/dL (12.0-16.0); MEAN CORPUSCULAR HEMOGLOBIN 28.8 pg (28.0-32.0); MEAN CORPUSCULAR VOLUME 87.5 fL (81.0-99.0); PLATELET 184 x1000/uL (130-400)
[2020-09-03] MEDS: BLOOD SUGAR DIAGNOSTIC STRIP TEST SCH ×4 (07:03→20:38)
[2020-09-03] MEDS: METOPROLOL TARTRATE 50MG TABLET PO SCH ×3 (09:15→20:38)
[2020-09-03 09:36] LABS: INR 1.4; PROTHROMBIN TIME 14.7 sec (9.6-11.0)
[2020-09-03] MEDS: METHYLPREDNISOLONE SOD SUCC 40 MG/ML VIAL IV SCH ×2 (10:19→19:20)
[2020-09-03] MEDS: FAMOTIDINE 20MG TABLET PO SCH (10:19)
[2020-09-03] MEDS: FUROSEMIDE 40MG/4ML VIAL IVP SCH ×2 (10:19→19:20)
[2020-09-03] MEDS: SACUBITRIL/VALSARTAN 24/26 TAB PO SCH ×2 (10:20→20:36)
[2020-09-03 17:44] LABS: PLATELET ESTIMATE NORMAL
[2020-09-03] MEDS ORDERED: WARFARIN SODIUM 3MG TABLET PO SCH (18:00)
[2020-09-03] MEDS: DIGOXIN 125MCG TABLET PO SCH (19:20)
[2020-09-03] MEDS: LEVOFLOXACIN 250MG TABLET PO SCH (19:20)
[2020-09-03 20:00] VITALS: BP 115/79
[2020-09-03] MEDS: ATORVASTATIN CALCIUM 20MG TABLET PO SCH (20:37)
[2020-09-04] VITALS: BP 104/76
[2020-09-04] MEDS: DILTIAZEM HCL 90MG TABLET PO SCH ×4 (00:34→17:12)
[2020-09-04] MEDS: METHYLPREDNISOLONE SOD SUCC 40 MG/ML VIAL IV SCH ×3 (00:34→21:08)
[2020-09-04] MEDS: IPRATROPIUM/ALBUTEROL 0.5-3(2.5)MG/3ML NEB NEB SCH ×4 (02:13→20:44)
[2020-09-04 04:00] VITALS: BP 94/65
[2020-09-04] MEDS: BLOOD SUGAR DIAGNOSTIC STRIP TEST SCH ×4 (05:55→21:00)
[2020-09-04] MEDS: INSULIN LISPRO 100 UNITS/ML SUBCUT SCH ×4 (05:56→21:07)
[2020-09-04 07:02] LABS: INR 1.6; PROTHROMBIN TIME 16.9 sec (9.6-11.0)
[2020-09-04 07:05] LABS: HEMATOCRIT. 32.7 % (36.0-48.0); HEMOGLOBIN. 10.7 g/dL (12.0-16.0); MEAN CORPUSCULAR HEMOGLOBIN 28.7 pg (28.0-32.0); MEAN CORPUSCULAR VOLUME 88.1 fL (81.0-99.0); PLATELET 179 x1000/uL (130-400); RED BLOOD CELL COUNT 3.71 mill/uL (4.2-5.4); RED CELL DISTRIBUTION WIDTH 18.1 % (11.6-14.6)
[2020-09-04 08:00] VITALS: BP 101/80
[2020-09-04 08:07] LABS: DIGOXIN 0.7 ng/mL (0.9-2.0)
[2020-09-04] MEDS ORDERED: MAGNESIUM 2 G PREMIX 50 ML IV SCH (11:00)
[2020-09-04] MEDS: SACUBITRIL/VALSARTAN 24/26 TAB PO SCH ×2 (11:29→23:00)
[2020-09-04] MEDS: FAMOTIDINE 20MG TABLET PO SCH (11:30)
[2020-09-04] MEDS: FUROSEMIDE 40MG/4ML VIAL IVP SCH ×2 (11:32→17:13)
[2020-09-04 13:36] LABS: PLATELET ESTIMATE NORMAL
[2020-09-04 16:00] VITALS: BP 114/81
[2020-09-04] MEDS: DIGOXIN 125MCG TABLET PO SCH (17:12)
[2020-09-04] MEDS: LEVOFLOXACIN 250MG TABLET PO SCH (17:12)
[2020-09-04] MEDS ORDERED: WARFARIN SODIUM 3MG TABLET PO SCH (18:00)
[2020-09-04 20:00] VITALS: BP 110/81
[2020-09-04] MEDS: METOPROLOL TARTRATE 100MG TABLET PO SCH (21:08)
[2020-09-04] MEDS: ATORVASTATIN CALCIUM 20MG TABLET PO SCH (21:09)
[2020-09-05] VITALS: BP 133/85
[2020-09-05] MEDS: DILTIAZEM HCL 90MG TABLET PO SCH ×3 (00:42→12:00)
[2020-09-05] MEDS: IPRATROPIUM/ALBUTEROL 0.5-3(2.5)MG/3ML NEB NEB SCH ×2 (02:32→08:38)
[2020-09-05] MEDS: METHYLPREDNISOLONE SOD SUCC 40 MG/ML VIAL IV SCH ×2 (02:48→09:49)
[2020-09-05 04:00] VITALS: BP 132/84
[2020-09-05] MEDS: BLOOD SUGAR DIAGNOSTIC STRIP TEST SCH ×2 (06:38→12:10)
[2020-09-05] MEDS: INSULIN LISPRO 100 UNITS/ML SUBCUT SCH ×2 (06:43→12:40)
[2020-09-05 06:59] LABS: INR 1.7; PROTHROMBIN TIME 17.6 sec (9.6-11.0)
[2020-09-05 07:17] LABS: HEMATOCRIT. 34.5 % (36.0-48.0); HEMOGLOBIN. 11.2 g/dL (12.0-16.0); MEAN CORPUSCULAR HEMOGLOBIN 28.9 pg (28.0-32.0); MEAN CORPUSCULAR VOLUME 88.6 fL (81.0-99.0); PLATELET 180 x1000/uL (130-400); RED BLOOD CELL COUNT 3.89 mill/uL (4.2-5.4); RED CELL DISTRIBUTION WIDTH 18.3 % (11.6-14.6)
[2020-09-05 08:00] VITALS: BP 118/80
[2020-09-05] MEDS: FAMOTIDINE 20MG TABLET PO SCH (09:17)
[2020-09-05] MEDS: SACUBITRIL/VALSARTAN 24/26 TAB PO SCH (09:17)
[2020-09-05] MEDS: FUROSEMIDE 40MG/4ML VIAL IVP SCH (09:49)
[2020-09-05] MEDS: METOPROLOL TARTRATE 100MG TABLET PO SCH (10:27)
[2020-09-05 15:25] LABS: PLATELET ESTIMATE NORMAL
[2020-09-05] MEDS ORDERED: WARFARIN SODIUM 7.5MG TABLET PO SCH (18:00)
== END 2020-09-05 12:50 | disposition home health service (06) | DRG 291 ==
LOC: ER 15:18 → MICUSO 18:36 → 8WST 09-01 06:27
PROVIDERS: ADMIT Internal Medicine; ATTEND Internal Medicine
DX: I13.0 Hypertensive heart and chronic kidney disease with heart failure and stage 1 through stage 4 chronic kidney disease, or unspecified chronic kidney disease (principal); J96.01 Acute respiratory failure with hypoxia; I48.20 Chronic atrial fibrillation, unspecified; J44.1 Chronic obstructive pulmonary disease with (acute) exacerbation; D68.9 Coagulation defect, unspecified; E84.9 Cystic fibrosis, unspecified; N17.9 Acute kidney failure, unspecified; I42.0 Dilated cardiomyopathy; Z53.29 Procedure and treatment not carried out because of patient's decision for other reasons; I50.9 Heart failure, unspecified; Z20.822 Contact with and (suspected) exposure to COVID-19; I07.1 Rheumatic tricuspid insufficiency; E78.5 Hyperlipidemia, unspecified; I27.21 Secondary pulmonary arterial hypertension; M48.02 Spinal stenosis, cervical region; E05.90 Thyrotoxicosis, unspecified without thyrotoxic crisis or storm; E11.22 Type 2 diabetes mellitus with diabetic chronic kidney disease; E11.65 Type 2 diabetes mellitus with hyperglycemia; D63.8 Anemia in other chronic diseases classified elsewhere; N18.9 Chronic kidney disease, unspecified; R29.6 Repeated falls; E78.00 Pure hypercholesterolemia, unspecified; K21.9 Gastro-esophageal reflux disease without esophagitis; E87.5 Hyperkalemia; I25.2 Old myocardial infarction; Z79.01 Long term (current) use of anticoagulants; Z86.73 Personal history of transient ischemic attack (TIA), and cerebral infarction without residual deficits; Z95.2 Presence of prosthetic heart valve; Z95.1 Presence of aortocoronary bypass graft; Z82.49 Family history of ischemic heart disease and other diseases of the circulatory system; Z88.5 Allergy status to narcotic agent; Z79.899 Other long term (current) drug therapy
CPT/HCPCS: 36415; 36600; 71045; 71110; 80048; 80053; 80061; 80162; 82375; 82550; 82553; 82805; 82962; 83735; 83880; 84439; 84443; 84484; 85025; 87426; 93005; 93970; 94640; 97162; 99285; J1160; J1815; J1940; J1956; J2920; J2930; J3430; J3475; J3490

== ENCOUNTER 2020-09-23 11:24 | Inpatient (IN) | payer MEDICARE, MEDICAID ==
[~2020-09-23] VITALS: Ht 167.6 cm; Wt 82.3 kg
[~2020-09-23 11:24] MED LIST changes: -ATOR40TA70 PO; +ESCI-7 MT; -FLUT30CR TP; +LISI20TA31 MT; -MONT10TA32 MT; +SPIR25TA6 MT
[2020-09-23] MEDS ORDERED: NITROGLYCERIN OINT 1GM/INCH UDPKT TD ONE (12:15)
[2020-09-23] MEDS ORDERED: FUROSEMIDE 40MG/4ML VIAL IV ONE (12:15)
[2020-09-23 12:21] LABS: BASOPHILS % 0.5 % (0.0-2.0); HEMATOCRIT. 33.6 % (36.0-48.0); HEMOGLOBIN. 10.9 g/dL (12.0-16.0); LYMPHOCYTES % 21.1 % (20.0-50.0); MEAN CORPUSCULAR HEMOGLOBIN 28.3 pg (28.0-32.0); MEAN CORPUSCULAR VOLUME 86.8 fL (81.0-99.0); MEAN PLATELET VOLUME 7.7 fl (7.4-10.4); NEUTROPHILS % 71.4 % (40.0-76.0); PLATELET 197 x1000/uL (130-400); RED BLOOD CELL COUNT 3.87 mill/uL (4.2-5.4); RED CELL DISTRIBUTION WIDTH 18.8 % (11.6-14.6)
[2020-09-23 12:27] LABS: CHLORIDE 110 mEq/L (98-107)
[2020-09-23 13:51] LABS: PROTHROMBIN TIME 92.1 sec (9.6-11.0)
[2020-09-23 15:38] LABS: INR > 10.0
[2020-09-23] MEDS ORDERED: PHYTONADIONE 10MG/ML AMP SUBCUT SCH (16:00)
[2020-09-23] MEDS: FUROSEMIDE 40MG/4ML VIAL IVP SCH (18:08)
[2020-09-23] MEDS ORDERED: MAGNESIUM/ALUMINUM HYDROXIDE/SIMETHICONE 30ML UDC PO PRN ×2 (18:15→19:00)
[2020-09-23] MEDS ORDERED: DOCUSATE SODIUM 100MG CAPSULE PO PRN (18:15)
[2020-09-23] MEDS ORDERED: CLONIDINE 0.1MG TABLET PO PRN (18:15)
[2020-09-23] MEDS ORDERED: ACETAMINOPHEN 325MG TABLET PO PRN (18:15)
[2020-09-23] MEDS ORDERED: IPRATROPIUM/ALBUTEROL 0.5-3(2.5)MG/3ML NEB HHN PRN (18:15)
[2020-09-23] MEDS ORDERED: ONDANSETRON HCL 4MG/2ML INJ IV PRN (18:15)
[2020-09-23] MEDS: DIGOXIN 125MCG TABLET PO SCH (18:44)
[2020-09-23] MEDS: DILTIAZEM HCL 90MG TABLET PO SCH ×2 (18:45→23:23)
[2020-09-23] MEDS ORDERED: DEXTROSE 50% WATER 50ML SYRINGE IV PRN ×2 (19:00)
[2020-09-23] MEDS ORDERED: CARVEDILOL 3.125 MG TABLET PO SCH (21:00)
[2020-09-23] MEDS: INSULIN LISPRO 100 UNITS/ML SUBCUT SCH (21:00)
[2020-09-23] MEDS ORDERED: SACUBITRIL/VALSARTAN 24/26 TAB PO SCH (21:00)
[2020-09-23] MEDS: BLOOD SUGAR DIAGNOSTIC STRIP TEST SCH (21:00)
[2020-09-23 23:05] VITALS: BP 105/74
[2020-09-23] MEDS: ATORVASTATIN CALCIUM 20MG TABLET PO SCH (23:28)
[2020-09-24 04:00] VITALS: BP 159/53
[2020-09-24] MEDS: SACUBITRIL/VALSARTAN 24/26 TAB PO SCH ×3 (04:03→21:50)
[2020-09-24] MEDS ORDERED: WARF7.5T48 PO (04:27)
[2020-09-24] MEDS ORDERED: DILT60TA35 PO (04:27)
[2020-09-24] MEDS ORDERED: METF-416 PO (04:27)
[2020-09-24] MEDS ORDERED: *PATIENT'S OWN MEDICATION STORAGE XX SCH (05:45)
[2020-09-24] MEDS: OMEPRAZOLE 20MG CAPSULE EXTENDED RELEASE PO SCH (06:54)
[2020-09-24] MEDS: DILTIAZEM HCL 90MG TABLET PO SCH ×3 (06:55→17:54)
[2020-09-24] MEDS: INSULIN LISPRO 100 UNITS/ML SUBCUT SCH ×4 (06:55→21:48)
[2020-09-24] MEDS: BLOOD SUGAR DIAGNOSTIC STRIP TEST SCH ×4 (06:55→21:00)
[2020-09-24 06:59] LABS: PROTHROMBIN TIME 97.9 sec (9.6-11.0)
[2020-09-24 07:03] LABS: BASOPHILS % 0.5 % (0.0-2.0); HEMATOCRIT. 30.8 % (36.0-48.0); LYMPHOCYTES % 26.4 % (20.0-50.0); MEAN CORPUSCULAR HEMOGLOBIN 28.1 pg (28.0-32.0); MEAN CORPUSCULAR VOLUME 86.9 fL (81.0-99.0); MEAN PLATELET VOLUME 8.1 fl (7.4-10.4); MONOCYTES % 8.4 % (2.0-8.0); NEUTROPHILS % 64.7 % (40.0-76.0); PLATELET 185 x1000/uL (130-400); RED BLOOD CELL COUNT 3.55 mill/uL (4.2-5.4)
[2020-09-24 07:08] LABS: CHLORIDE 112 mEq/L (98-107)
[2020-09-24 07:13] LABS: INR > 10.0
[2020-09-24 07:18] LABS: PHOSPHORUS 3.6 mg/dL (2.5-4.9)
[2020-09-24 07:19] LABS: LDL CHOLESTEROL 51 mg/dL (5-100)
[2020-09-24 07:21] LABS: HDL CHOLESTEROL 46 mg/dL (40-59)
[2020-09-24] MEDS: FUROSEMIDE 40MG/4ML VIAL IVP SCH ×2 (09:00→17:57)
[2020-09-24] MEDS ORDERED: PHYTONADIONE 10MG/ML AMP SUBCUT NR (09:15)
[2020-09-24] MEDS: METOPROLOL TARTRATE 50MG TABLET PO SCH ×2 (10:34→21:48)
[2020-09-24 11:36] VITALS: BP 101/70
[2020-09-24] MEDS ORDERED: TRAMADOL 50MG TABLET PO PRN (14:30)
[2020-09-24] MEDS ORDERED: HYDRALAZINE 20MG/ML VIAL IV PRN (14:30)
[2020-09-24] MEDS ORDERED: TEMAZEPAM 15MG CAPSULE PO PRN (14:30)
[2020-09-24 14:44] VITALS: BP 107/69
[2020-09-24] MEDS: METHYLPREDNISOLONE SOD SUCC 40 MG/ML VIAL IV SCH (14:46)
[2020-09-24] MEDS: DIGOXIN 125MCG TABLET PO SCH (17:57)
[2020-09-24 18:15] VITALS: BP 113/88
[2020-09-24 20:00] VITALS: BP 96/69
[2020-09-24 21:36] LABS: PROTHROMBIN TIME 41.3 sec (9.6-11.0)
[2020-09-24] MEDS: ATORVASTATIN CALCIUM 20MG TABLET PO SCH (21:47)
[2020-09-24 21:49] LABS: INR 4.3
[2020-09-24 22:00] VITALS: BP 130/85
[2020-09-25] VITALS (13 sets, daily range): BP systolic 110–153; BP diastolic 63–92
[2020-09-25] MEDS: IPRATROPIUM/ALBUTEROL 0.5-3(2.5)MG/3ML NEB HHN SCH ×3 (01:01→17:00)
[2020-09-25] MEDS: DILTIAZEM HCL 90MG TABLET PO SCH ×5 (01:15→23:25)
[2020-09-25 01:54] LABS: CLARITY URINE CLEAR (CLEAR); COLOR URINE YELLOW (YELLOW); KETONES URINE NEGATIVE (NEGATIVE); LEUKOCYTE ESTERASE URINE NEGATIVE (NEGATIVE); NITRITE URINE NEGATIVE (NEGATIVE); OCCULT BLOOD URINE NEGATIVE (NEGATIVE); PROTEIN URINE NEGATIVE (NEGATIVE); SPECIFIC GRAVITY URINE 1.015 (1.005-1.030)
[2020-09-25] MEDS: METHYLPREDNISOLONE SOD SUCC 40 MG/ML VIAL IV SCH ×2 (02:17→16:04)
[2020-09-25] MEDS: OMEPRAZOLE 20MG CAPSULE EXTENDED RELEASE PO SCH (05:58)
[2020-09-25] MEDS: BLOOD SUGAR DIAGNOSTIC STRIP TEST SCH ×4 (06:09→20:50)
[2020-09-25 07:16] LABS: PROTHROMBIN TIME 29.6 sec (9.6-11.0)
[2020-09-25 07:21] LABS: BASOPHILS % 0.2 % (0.0-2.0); HEMATOCRIT. 32.5 % (36.0-48.0); HEMOGLOBIN. 10.4 g/dL (12.0-16.0); LYMPHOCYTES % 11.2 % (20.0-50.0); MEAN CORPUSCULAR HEMOGLOBIN 27.9 pg (28.0-32.0); MEAN CORPUSCULAR VOLUME 86.9 fL (81.0-99.0); MEAN PLATELET VOLUME 8.1 fl (7.4-10.4); MONOCYTES % 1.4 % (2.0-8.0); NEUTROPHILS % 87.2 % (40.0-76.0); PLATELET 206 x1000/uL (130-400); RED BLOOD CELL COUNT 3.74 mill/uL (4.2-5.4); RED CELL DISTRIBUTION WIDTH 19.2 % (11.6-14.6)
[2020-09-25] MEDS: METOPROLOL TARTRATE 50MG TABLET PO SCH ×2 (08:55→20:49)
[2020-09-25] MEDS: SACUBITRIL/VALSARTAN 24/26 TAB PO SCH ×2 (08:55→20:49)
[2020-09-25] MEDS: FUROSEMIDE 40MG/4ML VIAL IVP SCH ×2 (08:56→17:15)
[2020-09-25] MEDS: INSULIN LISPRO 100 UNITS/ML SUBCUT SCH ×4 (09:01→20:55)
[2020-09-25] MEDS: DIGOXIN 125MCG TABLET PO SCH (17:15)
[2020-09-25] MEDS ORDERED: WARFARIN SODIUM 10MG TABLET PO NR (18:00)
[2020-09-25] MEDS: ATORVASTATIN CALCIUM 20MG TABLET PO SCH (20:49)
[2020-09-26] VITALS (9 sets, daily range): BP systolic 98–121; BP diastolic 60–77
[2020-09-26] MEDS: METHYLPREDNISOLONE SOD SUCC 40 MG/ML VIAL IV SCH ×2 (03:37→15:25)
[2020-09-26] MEDS: DILTIAZEM HCL 90MG TABLET PO SCH ×3 (05:49→17:05)
[2020-09-26] MEDS: BLOOD SUGAR DIAGNOSTIC STRIP TEST SCH ×3 (05:50→17:04)
[2020-09-26] MEDS ORDERED: FAMOTIDINE 20MG TABLET PO SCH (06:50)
[2020-09-26 07:12] LABS: INR 2.7
[2020-09-26 07:19] LABS: HEMATOCRIT. 31.8 % (36.0-48.0); HEMOGLOBIN. 10.6 g/dL (12.0-16.0); MEAN CORPUSCULAR HEMOGLOBIN 28.7 pg (28.0-32.0); MEAN CORPUSCULAR VOLUME 86.4 fL (81.0-99.0); MEAN PLATELET VOLUME 7.8 fl (7.4-10.4); PLATELET 230 x1000/uL (130-400); RED BLOOD CELL COUNT 3.68 mill/uL (4.2-5.4)
[2020-09-26] MEDS: IPRATROPIUM/ALBUTEROL 0.5-3(2.5)MG/3ML NEB HHN SCH (08:05)
[2020-09-26] MEDS: SACUBITRIL/VALSARTAN 24/26 TAB PO SCH (08:07)
[2020-09-26] MEDS: FUROSEMIDE 40MG/4ML VIAL IVP SCH ×2 (08:07→17:04)
[2020-09-26] MEDS: METOPROLOL TARTRATE 50MG TABLET PO SCH (08:07)
[2020-09-26] MEDS: INSULIN LISPRO 100 UNITS/ML SUBCUT SCH ×3 (08:09→17:04)
[2020-09-26] MEDS ORDERED: WARFARIN SODIUM 10MG TABLET PO SCH (17:00)
[2020-09-26] MEDS ORDERED: HYDROCORTISONE 1% CREAM 30GM TOP SCH (17:00)
[2020-09-26] MEDS: DIGOXIN 125MCG TABLET PO SCH (17:04)
[2020-09-26] MEDS ORDERED: WARF10TA44 MT (17:46)
[2020-09-27 08:10] LABS: NUCLEATED RED BLOOD CELLS 2 /100 WBC; PLATELET ESTIMATE NORMAL
== END 2020-09-26 18:17 | disposition home or self-care (01) | DRG 291 ==
LOC: ER 11:24 → 6WST 15:30 → ENRESERV 20:25 → 3WST 09-24 18:15
PROVIDERS: ADMIT Internal Medicine; ATTEND Internal Medicine
DX: I13.0 Hypertensive heart and chronic kidney disease with heart failure and stage 1 through stage 4 chronic kidney disease, or unspecified chronic kidney disease (principal); I50.23 Acute on chronic systolic (congestive) heart failure; J96.01 Acute respiratory failure with hypoxia; D68.9 Coagulation defect, unspecified; E87.1 Hypo-osmolality and hyponatremia; D68.59 Other primary thrombophilia; I48.19 Other persistent atrial fibrillation; N17.9 Acute kidney failure, unspecified; I42.0 Dilated cardiomyopathy; J44.9 Chronic obstructive pulmonary disease, unspecified; E05.90 Thyrotoxicosis, unspecified without thyrotoxic crisis or storm; E78.5 Hyperlipidemia, unspecified; E11.22 Type 2 diabetes mellitus with diabetic chronic kidney disease; N18.9 Chronic kidney disease, unspecified; M48.02 Spinal stenosis, cervical region; D64.9 Anemia, unspecified; I25.10 Atherosclerotic heart disease of native coronary artery without angina pectoris; D72.819 Decreased white blood cell count, unspecified; I50.9 Heart failure, unspecified; K21.9 Gastro-esophageal reflux disease without esophagitis; I07.1 Rheumatic tricuspid insufficiency; I27.20 Pulmonary hypertension, unspecified; Z82.49 Family history of ischemic heart disease and other diseases of the circulatory system; Z86.73 Personal history of transient ischemic attack (TIA), and cerebral infarction without residual deficits; Z95.2 Presence of prosthetic heart valve; Z79.01 Long term (current) use of anticoagulants; Z88.5 Allergy status to narcotic agent
CPT/HCPCS: 36415; 71045; 76700; 80048; 80053; 80061; 80076; 80162; 81003; 82962; 83036; 83735; 83880; 84100; 84443; 84484; 85025; 86850; 86900; 93005; 93970; 94640; 97162; 99291; J1815; J1940; J2920; J3430

== ENCOUNTER 2024-03-27 11:41 | Emergency (ER) | payer OTHER, MEDICAID ==
[~2024-03-27] VITALS: Ht 170.2 cm; Wt 60.0 kg
[~2024-03-27 11:41] MED LIST changes: +METF-416 PO; -METF-873 MT; +METH-371 PO; -TAP5 PO; +WARF10TA44 MT
[2024-03-27 11:43] VITALS: O2SAT 100
[2024-03-27 13:36] LABS: CHLORIDE 106 mEq/L (98-107); POTASSIUM 3.4 mEq/L (3.5-5.1); SODIUM 143 mEq/L (136-145)
[2024-03-27 13:37] LABS: CALCIUM 8.8 mg/dL (8.7-10.4); CARBON DIOXIDE 30 mEq/L (21-32)
[2024-03-27 13:42] LABS: CREATININE 1.6 mg/dL (0.6-1.0); GLUCOSE 124 mg/dL (70-105); UREA NITROGEN BLOOD 20 mg/dL (9-23)
[2024-03-27 13:44] LABS: TROPONIN I HIGH SENSITIVITY 8 ng/L (3.0-34)
[2024-03-27 13:58] LABS: BASOPHILS % 0.3 % (0.0-2.0); EOSINOPHILS % 2.9 % (0.0-5.0); HEMATOCRIT. 39.4 % (36.0-48.0); HEMOGLOBIN. 12.6 g/dL (12.0-16.0); LYMPHOCYTES % 33.6 % (20.0-50.0); MEAN CORPUSCULAR HGB CONC 31.9 g/dL (31.0-37.0); MEAN CORPUSCULAR VOLUME 90.8 fL (81.0-99.0); MEAN PLATELET VOLUME 8.3 fl (7.4-10.4); NEUTROPHILS % 53.2 % (40.0-76.0); PLATELET 137 x1000/uL (130-400); RED BLOOD CELL COUNT 4.34 mill/uL (4.2-5.4); RED CELL DISTRIBUTION WIDTH 14.9 % (11.6-14.6); WHITE BLOOD COUNT 3.8 x1000/uL (4.5-11.0)
[2024-03-27] MEDS ORDERED: ACETAMINOPHEN 325MG TABLET PO PRN ×2 (15:00)
[2024-03-27] MEDS ORDERED: TORS20TA4 (15:14)
[2024-03-27] MEDS ORDERED: ATOR40TA70 (15:14)
[2024-03-27] MEDS ORDERED: SACU1TAB7 (15:14)
[2024-03-27] MEDS ORDERED: EMPA25TA (15:14)
[2024-03-27] MEDS ORDERED: DEXTROSE 50% WATER 50ML SYRINGE IV PRN (17:00)
[2024-03-27] MEDS ORDERED: NITROGLYCERIN 0.4MG TABLET SL SL PRN (17:00)
[2024-03-27] MEDS: POTASSIUM CHLORIDE 20MEQ/PACKET PO NR (17:03)
[2024-03-27] MEDS: BLOOD SUGAR DIAGNOSTIC STRIP TEST SCH (17:03)
[2024-03-27] MEDS: PANTOPRAZOLE 40MG DR TABLET PO SCH (17:39)
[2024-03-27] MEDS: SPIRONOLACTONE 25MG TABLET PO SCH (17:40)
[2024-03-27] MEDS: ISOSORBIDE MONONITRATE 30MG TABLET SR 24HR PO SCH (17:40)
[2024-03-27] MEDS: TORSEMIDE 10MG TABLET PO SCH (17:41)
[2024-03-27] MEDS: METHIMAZOLE 5MG TABLET PO SCH (17:41)
[2024-03-27] MEDS ORDERED: DIGOXIN 500MCG/2ML AMP IV PRN (17:45)
[2024-03-27 17:52] VITALS: BP 133/95; PULSE 113; RESP 21; TEMP 36.72516; O2SAT 99
[2024-03-27] MEDS ORDERED: WARFARIN SODIUM 10MG TABLET PO SCH (18:00)
[2024-03-27] MEDS ORDERED: INSULIN LISPRO 100 UNITS/ML SUBCUT SCH (18:20)
[2024-03-27 18:42] LABS: T4 FREE 1.34 ng/dL (0.89-1.76); THYROID STIMULATING HORMONE 0.48 uIU/mL (0.55-4.78)
[2024-03-27] MEDS ORDERED: SACUBITRIL/VALSARTAN 49MG/51MG TABLET PO SCH (21:00)
[2024-03-27] MEDS ORDERED: CARVEDILOL 12.5MG TABLET PO SCH (21:00)
[2024-03-27] MEDS ORDERED: ATORVASTATIN CALCIUM 40MG TABLET PO SCH (21:00)
[2024-03-28] MEDS ORDERED: CITALOPRAM HYDROBROMIDE 10MG TABLET PO SCH (09:00)
== END 2024-03-27 18:17 | disposition admitted as inpatient to this hospital (09) ==
LOC: ER 11:41 → EDBEDREQ 11:52 → CANBEDREQ 14:25 → ER 18:17
DX: R06.09 Other forms of dyspnea (principal); E87.6 Hypokalemia; E11.9 Type 2 diabetes mellitus without complications; I11.0 Hypertensive heart disease with heart failure; I50.9 Heart failure, unspecified; J44.9 Chronic obstructive pulmonary disease, unspecified; Z79.899 Other long term (current) drug therapy; Z86.73 Personal history of transient ischemic attack (TIA), and cerebral infarction without residual deficits; Z88.5 Allergy status to narcotic agent; Z95.1 Presence of aortocoronary bypass graft; Z95.2 Presence of prosthetic heart valve; Z98.890 Other specified postprocedural states
CPT/HCPCS: 36415; 71045; 71275; 80048; 82962; 83036; 83880; 84439; 84443; 84484; 85025; 93005; 99285

== ENCOUNTER 2024-11-05 16:28 | Emergency (ER) | payer OTHER, MEDICAID ==
[~2024-11-05] VITALS: Ht 167.6 cm; Wt 63.0 kg
[~2024-11-05 16:28] MED LIST changes: +ATOR40TA70; +EMPA25TA; +SACU1TAB7; +TORS20TA4
[2024-11-05 16:31] VITALS: O2SAT 100
[2024-11-05 17:19] LABS: BASOPHILS % 0.8 % (0.0-2.0); EOSINOPHILS % 1.5 % (0.0-5.0); HEMATOCRIT. 38.6 % (36.0-48.0); HEMOGLOBIN. 12.5 g/dL (12.0-16.0); LYMPHOCYTES % 34.8 % (20.0-50.0); MEAN CORPUSCULAR HEMOGLOBIN 28.9 pg (28.0-32.0); MEAN CORPUSCULAR HGB CONC 32.4 g/dL (31.0-37.0); MEAN CORPUSCULAR VOLUME 89.2 fL (81.0-99.0); MEAN PLATELET VOLUME 7.9 fl (7.4-10.4); NEUTROPHILS % 53.9 % (40.0-76.0); PLATELET 153 x1000/uL (130-400); RED BLOOD CELL COUNT 4.32 mill/uL (4.2-5.4); RED CELL DISTRIBUTION WIDTH 14.9 % (11.6-14.6); WHITE BLOOD COUNT 4.1 x1000/uL (4.5-11.0)
[2024-11-05] MEDS: DILTIAZEM HCL 5MG/ML 5ML VIAL IV PRN (17:23)
[2024-11-05 17:26] LABS: CHLORIDE 108 mEq/L (98-107); POTASSIUM 3.5 mEq/L (3.5-5.1); SODIUM 143 mEq/L (136-145)
[2024-11-05 17:27] LABS: CALCIUM 8.5 mg/dL (8.7-10.4); CARBON DIOXIDE 24 mEq/L (21-32)
[2024-11-05 17:31] LABS: INR 1.2; PARTIAL THROMBOPLASTIN TIME 31.9 sec (23.4-31.0); PROTHROMBIN TIME 12.6 sec (9.6-11.0)
[2024-11-05 17:32] LABS: CREATININE 1.7 mg/dL (0.6-1.0); GLUCOSE 103 mg/dL (70-105); UREA NITROGEN BLOOD 25 mg/dL (9-23)
[2024-11-05 17:33] LABS: TROPONIN I HIGH SENSITIVITY 16 ng/L (3.0-34)
[2024-11-05] MEDS: DILTIAZEM HCL 30MG TABLET PO ONE (19:09)
[2024-11-05 19:38] VITALS: BP 113/82; PULSE 131; RESP 17; TEMP 36.6; O2SAT 100
== END 2024-11-05 20:15 | disposition short-term general hospital (02) ==
LOC: ER 16:28 → CANBEDREQ 18:33 → ER 20:15 → ENRESERV 20:57
DX: I48.91 Unspecified atrial fibrillation (principal); I11.0 Hypertensive heart disease with heart failure; I50.9 Heart failure, unspecified; E11.9 Type 2 diabetes mellitus without complications; I25.2 Old myocardial infarction; F32.A Depression, unspecified; Z79.82 Long term (current) use of aspirin; Z79.01 Long term (current) use of anticoagulants; Z79.84 Long term (current) use of oral hypoglycemic drugs; Z79.899 Other long term (current) drug therapy; Z82.49 Family history of ischemic heart disease and other diseases of the circulatory system; Z86.73 Personal history of transient ischemic attack (TIA), and cerebral infarction without residual deficits; Z88.5 Allergy status to narcotic agent
CPT/HCPCS: 99291; 96374; 80048; 83880; 83735; 85025; 85610; 85730; 84484; 36415; 71045; 93005; 96376; J3490